=== PATIENT | male | born 1955 | race Caucasian/White ===

== ENCOUNTER 2017-05-13 12:26 | Observation (INO) | payer BC, MEDICARE ==
[2017-05-13 12:33] VITALS: RESP 18
--- NOTE | 2017-05-13 13:07 | ED ---
General Adult HPI - General Chief complaint: Chest Pain Stated complaint: Chest Pain Time Seen by Provider: 05/13/17 12:38 Source: patient, RN notes reviewed Mode of arrival: wheelchair Limitations: no limitations - History of Present Illness Initial comments: 60-year-old male presents for evaluation of chest pain. Patient was sent from the urgent care with this complaint. He's been having intermittent chest pain for the past 3 weeks. Pain is worse with exertion. He has noted some shortness of breath and diaphoresis associated with his worst episode which was 3 days ago. Patient has no known history of coronary artery disease. No history of diabetes or hypertension. He is light smoker. Patient has also had heartburn symptoms and bilateral lower chest pain for the past several weeks. He does complain of some nontraumatic right arm pain as well. No significant family history of coronary artery disease. - Related Data Home Medications Medication Instructions Recorded Confirmed traMADol HCL [Ultram] 25 mg PO DAILY PRN 05/13/17 05/13/17 Allergies Allergy/AdvReac Type Severity Reaction Status Date / Time No Known Allergies Allergy Verified 05/13/17 12:52 Review of Systems ROS Statement: Those systems with pertinent positive or pertinent negative responses have been documented in the HPI. ROS Other: All systems not noted in ROS Statement are negative. Past Medical History Past Medical History: No Reported History Additional Past Medical History / Comment(s): shoulder pain History of Any Multi-Drug Resistant Organisms: None Reported Past Surgical History: Cholecystectomy Past Psychological History: No Psychological Hx Reported Smoking Status: Current some day smoker Past Alcohol Use History: Occasional Past Drug Use History: None Reported General Exam Limitations: no limitations General appearance: alert, in no apparent distress Head exam: Present: atraumatic, normocephalic Eye exam: Present: normal appearance, PERRL Neck exam: Present: normal inspection. Absent: tenderness, meningismus Respiratory exam: Present: normal lung sounds bilaterally. Absent: respiratory distress, wheezes Cardiovascular Exam: Present: regular rate, normal rhythm GI/Abdominal exam: Present: soft. Absent: distended, tenderness Extremities exam: Present: normal inspection, normal capillary refill. Absent: pedal edema Neurological exam: Present: alert, oriented X3, CN II-XII intact. Absent: motor sensory deficit Psychiatric exam: Present: normal affect, normal mood Skin exam: Present: warm, dry, intact. 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 No signs of ST segment elevation. Patient pain Free at the time of this EKG. Medical Decision Making - Medical Decision Making 62-year-old male presenting with several week history of typical chest pain. No known history of coronary artery disease. EKG shows right bundle branch block, no signs of acute ischemia. Patient's history is concerning for unstable angina. He is started on heparin drip. He received aspirin prior to arrival. Laboratory studies reveal normal white blood cell count 4.0, stable hemoglobin, normal electrolytes. Troponin is negative Chest x-ray negative for acute intrathoracic process. - Lab Data Result diagrams: 05/13/17 13:00 05/13/17 13:00 Lab Results 05/13/17 05/13/17 05/13/17 Range/Units 13:00 13:00 13:00 WBC 4.0 (3.8-10.6) k/uL RBC 4.64 (4.30-5.90) m/uL Hgb 14.2 (13.0-17.5) gm/dL Hct 43.0 (39.0-53.0) % MCV 92.6 (80.0-100.0) fL MCH 30.6 (25.0-35.0) pg MCHC 33.0 (31.0-37.0) g/dL RDW 12.8 (11.5-15.5) % Plt Count 243 (150-450) k/uL Neutrophils % 41 % Lymphocytes % 42 % Monocytes % 7 % Eosinophils % 5 % Basophils % 1 % Neutrophils # 1.7 (1.3-7.7) k/uL Lymphocytes # 1.7 (1.0-4.8) k/uL Monocytes # 0.3 (0-1.0) k/uL Eosinophils # 0.2 (0-0.7) k/uL Basophils # 0.0 (0-0.2) k/uL PT (9.0-12.0) sec INR (<1.2) APTT (22.0-30.0) sec Sodium 142 (137-145) mmol/L Potassium 4.2 (3.5-5.1) mmol/L Chloride 105 (98-107) mmol/L Carbon Dioxide 26 (22-30) mmol/L Anion Gap 11 mmol/L BUN 11 (9-20) mg/dL Creatinine 0.70 (0.66-1.25) mg/dL Est GFR (MDRD) Af Amer >60 (>60 ml/min/1.73 sqM) Est GFR (MDRD) Non-Af >60 (>60 ml/min/1.73 sqM) Glucose 97 (74-99) mg/dL Calcium 9.5 (8.4-10.2) mg/dL Magnesium 1.9 (1.6-2.3) mg/dL Total Bilirubin 0.5 (0.2-1.3) mg/dL AST 37 (17-59) U/L ALT 54 (21-72) U/L Alkaline Phosphatase 83 (38-126) U/L Total Creatine Kinase 110 (55-170) U/L CK-MB (CK-2) 0.9 (0.0-2.4) ng/mL CK-MB (CK-2) Rel Index 0.8 Troponin I <0.012 (0.000-0.034) ng/mL NT-Pro-B Natriuret Pep pg/mL Total Protein 7.2 (6.3-8.2) g/dL Albumin 4.3 (3.5-5.0) g/dL Lipase 100 (23-300) U/L 05/13/17 05/13/17 Range/Units 13:00 13:00 WBC (3.8-10.6) k/uL RBC (4.30-5.90) m/uL Hgb (13.0-17.5) gm/dL Hct (39.0-53.0) % MCV (80.0-100.0) fL MCH (25.0-35.0) pg MCHC (31.0-37.0) g/dL RDW (11.5-15.5) % Plt Count (150-450) k/uL Neutrophils % % Lymphocytes % % Monocytes % % Eosinophils % % Basophils % % Neutrophils # (1.3-7.7) k/uL Lymphocytes # (1.0-4.8) k/uL Monocytes # (0-1.0) k/uL Eosinophils # (0-0.7) k/uL Basophils # (0-0.2) k/uL PT 10.5 (9.0-12.0) sec INR 1.1 (<1.2) APTT 24.6 (22.0-30.0) sec Sodium (137-145) mmol/L Potassium (3.5-5.1) mmol/L Chloride (98-107) mmol/L Carbon Dioxide (22-30) mmol/L Anion Gap mmol/L BUN (9-20) mg/dL Creatinine (0.66-1.25) mg/dL Est GFR (MDRD) Af Amer (>60 ml/min/1.73 sqM) Est GFR (MDRD) Non-Af (>60 ml/min/1.73 sqM) Glucose (74-99) mg/dL Calcium (8.4-10.2) mg/dL Magnesium (1.6-2.3) mg/dL Total Bilirubin (0.2-1.3) mg/dL AST (17-59) U/L ALT (21-72) U/L Alkaline Phosphatase (38-126) U/L Total Creatine Kinase (55-170) U/L CK-MB (CK-2) (0.0-2.4) ng/mL CK-MB (CK-2) Rel Index Troponin I (0.000-0.034) ng/mL NT-Pro-B Natriuret Pep 16 pg/mL Total Protein (6.3-8.2) g/dL Albumin (3.5-5.0) g/dL Lipase (23-300) U/L Critical Care Time Critical Care Time: Yes Total Critical Care Time: 35 Disposition Clinical Impression: Unstable angina pectoris Disposition: ADMITTED IP TO THIS [facility] Condition: Stable Referrals: Avni Merritt MD [Primary Care Provider] - 1-2 days Decision to Admit Reason: Admit from EC Decision Date: 05/13/17 Decision Time: 14:29
[2017-05-13 13:30] LABS: Basophils % (A) 1 %; Eosinophils # (A) 0.2 k/uL (0-0.7); Eosinophils % (A) 5 %; HGB 14.2 gm/dL (13.0-17.5); Lymphocytes # (A) 1.7 k/uL (1.0-4.8); Lymphocytes % (A) 42 %; MCH 30.6 pg (25.0-35.0); MCV 92.6 fL (80.0-100.0); Mean Platelet Volume 6.5; Monocytes # (A) 0.3 k/uL (0-1.0); Monocytes % (A) 7 %; Neutrophils # (A) 1.7 k/uL (1.3-7.7); Neutrophils % (A) 41 %; Platelet Count 243 k/uL (150-450); RBC 4.64 m/uL (4.30-5.90); RDW 12.8 % (11.5-15.5)
[2017-05-13 13:39] LABS: Partial Thromboplastin Time 24.6 sec (22.0-30.0)
[2017-05-13 13:40] LABS: ALT 54 U/L (21-72); AST 37 U/L (17-59); Albumin 4.3 g/dL (3.5-5.0); Alkaline Phosphatase 83 U/L (38-126); Anion Gap 11 mmol/L; Blood Urea Nitrogen 11 mg/dL (9-20); Calcium 9.5 mg/dL (8.4-10.2); Carbon Dioxide 26 mmol/L (22-30); Chloride 105 mmol/L (98-107); Glucose 97 mg/dL (74-99); Lipase 100 U/L (23-300); Potassium 4.2 mmol/L (3.5-5.1); Sodium 142 mmol/L (137-145); Total Bilirubin 0.5 mg/dL (0.2-1.3); Total Protein 7.2 g/dL (6.3-8.2)
[2017-05-13 13:41] LABS: INR 1.1 (<1.2); Prothrombin Time 10.5 sec (9.0-12.0)
--- NOTE | 2017-05-13 13:42 | XR ---
EXAMINATION TYPE: XR chest 2V DATE OF EXAM: 05/13/2017 COMPARISON: Chest x-ray November 07, 2012. HISTORY: Chest pain and congestion. TECHNIQUE: Frontal and lateral views of the chest are obtained. FINDINGS: There is no focal air space opacity, pleural effusion, or pneumothorax seen. The cardiac silhouette size is within normal limits. Aneurysmal prominence of aortic knob is stable from prior. The osseous structures are intact. Cholecystectomy clips are redemonstrated. IMPRESSION: No acute cardiopulmonary process. No significant change from prior chest x-ray.
[2017-05-13 13:51] LABS: Creatine Kinase 110 U/L (55-170)
[2017-05-13] MEDS ORDERED: HEPARIN SODIUM,PORCINE 5,000 UNIT/ML 1 ML VIAL IV PRN (13:54)
[2017-05-13] MEDS ORDERED: HEPARIN SODIUM,PORCINE 5,000 UNIT/ML 1 ML VIAL IV ONE (13:54)
[2017-05-13] MEDS ORDERED: HEPARIN SOD,PORK IN 0.45% NACL 25,000 UNIT in 0.45% NACL 1 500ML.BAG IV SCH (14:00)
[2017-05-13 14:04] LABS: Creatine Kinase MB 0.9 ng/mL (0.0-2.4); Troponin I <0.012 ng/mL (0.000-0.034)
[2017-05-13] MEDS ORDERED: NITROGLYCERIN SL TABS 0.4 MG TAB SUBLINGUAL PRN (14:26)
[2017-05-13 19:36] LABS: Creatine Kinase 92 U/L (55-170)
[2017-05-13 19:49] LABS: Creatine Kinase MB 0.7 ng/mL (0.0-2.4); Troponin I <0.012 ng/mL (0.000-0.034)
[2017-05-13] MEDS ORDERED: ATORVASTATIN 40 MG TAB PO SCH (21:00)
[2017-05-14 02:22] LABS: Basophils % (A) 1 %; Eosinophils # (A) 0.4 k/uL (0-0.7); Eosinophils % (A) 8 %; HCT 41.8 % (39.0-53.0); Lymphocytes # (A) 2.3 k/uL (1.0-4.8); Lymphocytes % (A) 50 %; MCHC 31.1 g/dL (31.0-37.0); MCV 96.4 fL (80.0-100.0); Mean Platelet Volume 6.5; Monocytes # (A) 0.4 k/uL (0-1.0); Monocytes % (A) 8 %; Neutrophils # (A) 1.4 k/uL (1.3-7.7); Neutrophils % (A) 31 %; Platelet Count 213 k/uL (150-450); RBC 4.34 m/uL (4.30-5.90); RDW 12.7 % (11.5-15.5); WBC 4.6 k/uL (3.8-10.6)
[2017-05-14 02:42] LABS: Creatine Kinase 87 U/L (55-170)
[2017-05-14 02:45] LABS: Cholesterol 182 mg/dL (<200); HDL Cholesterol 48 mg/dL (40-60); LDL Cholesterol,Calculated 110 mg/dL (0-99); Triglycerides 118 mg/dL (<150)
[2017-05-14 02:56] LABS: Creatine Kinase MB 0.6 ng/mL (0.0-2.4); Troponin I <0.012 ng/mL (0.000-0.034)
--- NOTE | 2017-05-14 03:37 | HP ---
HISTORY AND PHYSICAL DATE OF ADMISSION: 05/13/2017 CHIEF COMPLAINTS: Chest pain. HISTORY OF PRESENT ILLNESS: This 62-year-old gentleman with a past medical history of multiple medical problems including history of GERD, history of bilateral shoulder rotator cuff, cholecystectomy, DJD being followed by Dr. Avni Merritt in the outpatient setting, has [facility] with complaints of chest pain. Patient had chest pain felt in the anterior part of the chest on and off for the last few weeks. The pain is worse with exertion. There is some associated shortness of breath with diaphoresis and first episode 3 days ago. There is no history of fever, rigors or chills. No history of headache, loss of consciousness, seizures. PAST MEDICAL HISTORY: History of GERD, history of bilateral shoulder pain, DJD, cholecystectomy. MEDICATIONS: Prior to admission include home medications are: Ultram 25 mg daily p.r.n. ALLERGIES: None. FAMILY HISTORY: History of dementia, TB in the family. SOCIAL HISTORY: No history of smoking. Occasional alcohol intake. REVIEW OF SYSTEMS: ENT: No diminished vision or hearing. CARDIOVASCULAR: As mentioned earlier. Respiratory: As mentioned earlier. GI no nausea or vomiting. no dysuria. Nervous system: No numbness, weakness. Allergy/immunology: No asthma or hayfever. MUSCULOSKELETAL: As mentioned earlier. HEMATOLOGY/ONCOLOGY: No history of anemia. Endocrine: No history of diabetes or hypothyroidism. Constitutional: As mentioned earlier. Dermatology negative. Rheumatology negative. Psychiatric: As mentioned earlier. PHYSICAL EXAMINATION: Alert and oriented x3. The pulse is 62, blood pressure 98/50, respiration 18, temperature 97.2, pulse ox 97% on room air. HEENT: Conjunctivae normal. Neck: No jugular venous distention. Cardiovascular: S1, S2. Respiratory: Breath sounds diminished in the bases. No rhonchi and no crackles. ABDOMEN: Soft. No mass palpable. Legs no edema. No swelling. NERVOUS SYSTEM: Higher functions as mentioned earlier, moves all 4 limbs, no focal motor or sensory deficits. Lymphatics: No lymph nodes palpable in the neck, axillae or groin. Skin no ulcer, rash, bleeding. LABS: At this time shows some labs are CBC within normal limits. Troponins are negative. APTT noted. The chest x-ray is reported as no acute abnormality and EKG shows normal sinus rhythm. Right bundle branch block. ASSESSMENT: 1. Chest pain for evaluation; possible unstable angina. 2. Incomplete right bundle branch block on the EKG. 3. Gastroesophageal reflux disease. 4. Bilateral shoulder pain, degenerative joint disease. 5. History of cholecystectomy. RECOMMENDATIONS AND DISCUSSION: In this 62-year-old gentleman who presented with multiple complex medical issues, we will monitor the patient closely. Continue the current medications, management and symptomatic treatment. I recommend unstable angina protocol. Otherwise cardiac consultation. N.p.o. past midnight. Possible stress test. Guarded prognosis because of multiple complex medical issues. Further recommendations to follow. MMODL / IJN: [id number] /
[2017-05-14] MEDS ORDERED: ASPIRIN 325 MG TAB PO SCH (09:00)
--- NOTE | 2017-05-14 11:53 | CONS ---
CONSULTATION Mr. Aviles is a 62-year-old gentleman who is seen for cardiac evaluation. Patient gives a history that he has not been feeling well for a couple of weeks. He had some symptoms of cough and then he was having some sweating spells and shortness of breath. Then over the last 2 days, he had some intermittent chest pain which sometimes occurs on the right side, sometimes on the left side. These pains lasting only for few seconds to a minute. The pains were not related to exertion. This patient has a past history of atypical angina and had a stress test done about 3 years ago which was normal. The patient is a light smoker. Patient's home medications include tramadol 25 mg daily. PAST MEDICAL HISTORY: Past medical history includes history of shoulder pain and history of cholecystectomy. PHYSICAL EXAMINATION: Physical examination in the emergency room revealed the patient's vital signs were stable. The patient's blood pressure is 102/65 mmHg. Heart rate is 60 per minute. HEENT examination is negative. Neck is supple. There is no increase in jugular venous pressure. Both the carotid pulses are felt. There is no bruit. Chest is symmetrical. HEART: The PMI is not felt. First and second heart sounds are normal. There is no evidence of any murmur. Lungs are clinically clear to auscultation and percussion. Abdomen is soft. Liver and spleen are not enlarged. Bowel sounds are heard. EXTREMITIES: Peripheral pulsations are 2+. There is no evidence of edema or phlebitis. Neurological examination is grossly normal. EKG shows normal sinus rhythm without any acute ischemic changes. Cardiac enzymes are normal. FINAL IMPRESSION: Atypical chest pain and shortness of breath. EKGs and cardiac enzymes are normal. Patient will be evaluated with echocardiogram and stress echocardiographic study. MMODL / IJN: [id number] /
[2017-05-14 11:58] VITALS: BP 124/84; PULSE 63; TEMP 97.6
--- NOTE | 2017-05-14 12:32 | ECHOF ---
Referral Reason: MEASUREMENTS -------- HEIGHT: 170.2 cm WEIGHT: 81.6 kg BP: 98/54 IVSd: 1.3 cm (0.6 - 1.1) LVIDd: 3.2 cm (3.9 - 5.3) LVPWd: 1.4 cm (0.6 - 1.1) IVSs: 1.7 cm LVIDs: 1.7 cm LVPWs: 1.7 cm LAESV Index (A-L): 16.94 ml/m Ao Diam: 3.2 cm (2.0 - 3.7) AV Cusp: 1.6 cm (1.5 - 2.6) LA Diam: 2.6 cm (2.7 - 3.8) MV EXCURSION: 15.965 mm (> 18.000) MV EF SLOPE: 116 mm/s (70 - 150) EPSS: 0.4 cm MV E Pollo: 0.63 m/s MV DecT: 315 ms MV A Pollo: 0.63 m/s MV E/A Ratio: 1.01 RAP: 5.00 mmHg RVSP: 22.41 mmHg FINDINGS -------- Sinus rhythm. This was a technically good study. The left ventricular size is normal. There is mild concentric left ventricular hypertrophy. Overa ll left ventricular systolic function is normal with, an EF between 55 - 60 %. The right ventricle is normal in size and function. The left atrium is normal in size. The right atrium is normal in size. The aortic valve is trileaflet, and appears structurally normal. No aortic stenosis or regurgitation. The mitral valve leaflets are mildly thickened. There is trace mitral regurgitation. Trace tricuspid regurgitation present. The right ventricular systolic pressure, as measured by Dopp ler, is 22.41mmHg. Pulmonic valve appears structurally normal. The aortic root size is normal. The pericardium is normal. CONCLUSIONS -------- 1. Sinus rhythm. 2. This was a technically good study. 3. The left ventricular size is normal. 4. There is mild concentric left ventricular hypertrophy. 5. Overall left ventricular systolic function is normal with, an EF between 55 - 60 %. 6. The right ventricle is normal in size and function. 7. The left atrium is normal in size. 8. The right atrium is normal in size. 9. The aortic valve is trileaflet, and appears structurally normal. No aortic stenosis or regurgitati on. 10. The mitral valve leaflets are mildly thickened. 11. There is trace mitral regurgitation. 12. Trace tricuspid regurgitation present. 13. The right ventricular systolic pressure, as measured by Doppler, is 22.41mmHg. 14. Pulmonic valve appears structurally normal. 15. The aortic root size is normal. 16. The pericardium is normal. PRODUCTION TESTER: Shanda Mejia RDCS
--- NOTE | 2017-05-14 13:56 | ECHOS ---
STRESS ECHOCARDIOGRAM BASELINE HEART RATE: 66 BASELINE BLOOD PRESSURE: 98/64 MAXIMUM HEART RATE: 139 MAXIMUM BLOOD PRESSURE: 145/66 85% MPHR: 134 100% MPHR: 158 METS: 11.9 MAXIMUM STAGE REACHED: III TOTAL EXERCISE TIME: 11:35 CLINICAL INFORMATION: Patient was exercised for a total period of 11 minutes. The peak heart rate of 139, was achieved. Maximum blood pressure of 137/75 mmHg was noted. The resting EKG shows a normal sinus rhythm with a QRS morphology suggestive of right bundle branch block pattern was noted. No ST-segment depression suggestive of ischemia is noted. The baseline echocardiographic images reveals normal left ventricular chamber size with normal left ventricular systolic function. In the immediate postexercise period normal increase in the wall thickness and contractility is noted. FINAL IMPRESSION: This stress echocardiographic study is negative for stress-induced ischemia. EKG portion of the stress test is not suggestive of ischemia. Patient's exercise tolerance is normal. MMODL / IJN: [id number] /
--- NOTE | 2017-05-14 21:59 | DS ---
DISCHARGE SUMMARY DATE OF SERVICE: 05/14/2017 FINAL DIAGNOSES: 1. Chest pain, possibly musculoskeletal. Negative stress test. 2. Incomplete right bundle branch block on EKG. 3. Gastroesophageal reflux disease. 4. Bilateral shoulder pain, degenerative joint disease. 5. History of cholecystectomy. DISCHARGE DISPOSITION: Patient will be discharged in stable condition with guarded prognosis. HISTORY OF PRESENT ILLNESS: This 62-year-old gentleman with a past medical history of multiple medical problems was having chest pain. Myocardial infarction was ruled out. Stress echo was normal. Cardiology recommended the patient be discharged. The patient will follow up with Dr. Merritt in the outpatient setting. There is no history of fever, rigor or chills. On exam, vital are stable. CARDIOVASCULAR SYSTEM: S1, S2 normal. ABDOMEN: Soft. NERVOUS SYSTEM: No focal deficit. DISCHARGE ADVICE AND MEDICATIONS: 1. Diet is cardiac. 2. Activity limited until followup. 3. Follow up with Dr. Merritt in 2 to 3 days. 4. Follow up with Cardiology as advised. 5. Omeprazole 20 mg p.o. b.i.d. 6. Ultram 25 mg p.o. daily. Once again, the patient will be discharged in stable condition with guarded prognosis. MMODL / IJN: [id number] /
== END 2017-05-14 15:15 | disposition home or self-care (01) ==
LOC: EC 12:26 → 3OBS 14:26
PROVIDERS: ADMIT Hospitalist; ATTEND Hospitalist
DX: R07.89 Other chest pain (principal); R06.02 Shortness of breath; R61 Generalized hyperhidrosis; R12 Heartburn; R05 Cough; M79.601 Pain in right arm; M25.511 Pain in right shoulder; M25.512 Pain in left shoulder; I45.10 Unspecified right bundle-branch block; K21.9 Gastro-esophageal reflux disease without esophagitis; M19.90 Unspecified osteoarthritis, unspecified site; Z90.49 Acquired absence of other specified parts of digestive tract; F17.200 Nicotine dependence, unspecified, uncomplicated; Z81.8 Family history of other mental and behavioral disorders; Z84.89 Family history of other specified conditions
CPT/HCPCS: 99291; 96365 ×2; 96376 ×2; 96366 ×2; 36415; 93005; 93017; 93306; 93350; 83880; 80061; 80053; 82550 ×2; 82553 ×2; 83690; 83735; 84484 ×2; 85025 ×2; 85610; 85730 ×2; 71046; G0378 ×2; J1644 ×2

== ENCOUNTER → 2019-04-11 | Day surgery (SDC) | payer MEDICARE ==
[2019-04-07 10:10] VITALS: BMI 26.7
[~2019-04-11] MED LIST: LACTATED RINGERS 1,000 ML IV SCH; LIDOCAINE 1% (10MG/ML) FOR IV START INTRADERMA PRN
== END ==
LOC: ORWHC2ENDO 08:06
PROVIDERS: ATTEND Internal Medicine
DX: Z53.9 Procedure and treatment not carried out, unspecified reason (principal)

== ENCOUNTER → 2020-05-14 | Day surgery (SDC) | payer MEDICARE ==
[2020-05-11 09:23] VITALS: BMI 26.9
[~2020-05-14] MED LIST changes: +LIDOCAINE 1% INJ 10MG/ML (20 ML MDV) ONE; +PHENYLEPHRINE-0.9% NACL SYG 1,000 MCG/10 ML SYRINGE ONE; +PROPOFOL 10 MG/ML 20 ML VIAL IV ONE; +fentaNYL (PF) 50 MCG/ML 2 ML AMP ONE
[2020-05-14 09:28] VITALS: RESP 16; TEMP 97.8
--- NOTE | 2020-05-14 10:33 | P.PCN ---
Date of Procedure: 05/14/20 Description of Procedure: BRIEF HISTORY: Patient is a 65-year-old male presenting for outpatient colonoscopy for screening for malignancy neoplasm colon. Patient reports recent episode of diverticulitis. Last colonoscopy over 10 years ago by patient report. No change in bowel habits. PROCEDURE PERFORMED: Colonoscopy with polypectomy. PREOPERATIVE DIAGNOSIS: Screening for malignant neoplasm of the colon, last colonoscopy over 10 years ago per patient report. ESTIMATED BLOOD LOSS: Minimal. IV sedation per Anesthesia. PROCEDURE: After informed consent was obtained, the patient, was brought into the endoscopy unit. IV sedation was administered by Anesthesia under continuous monitoring. Digital rectal examination was normal. Initially the Olympus CF-190 flexible video colonoscope was then inserted in the rectum, gradually advanced into the cecum without any difficulty. Careful examination was performed as the scope was gradually being withdrawn. Ileocecal valve and the appendiceal orifice were visualized and appeared normal. Prep was excellent. Mucosa of the cecum, ascen ding colon, transverse colon, descending colon, sigmoid colon, and rectum appeared normal. 2 diminutive polyps measuring 1-2 mm in size removed from ascending colon and transverse colon with cold forcep polypectomy. Cold snare polypectomy of sessile 3 mm cecal polyp, sessile 4 mm splenic flexure polyp. Pedunculated at 12 mm sigmoid polyp removed with hot snare polypectomy. Multiple small mouth diverticula noted in the sigmoid colon. Retroflexion was performed in the rectum and no lesions were seen. The patient tolerated the procedure well. IMPRESSION: Pedunculated sigmoid colon polyp removed with hot snare polypectomy. Cold snare polypectomy of sessile polyps from the cecum and splenic flexure. 2 diminutive polyps removed from the ascending colon and transverse colon with cold forcep polypectomy. Mild sigmoid diverticulosis. RECOMMENDATIONS: Findings of this examination were discussed with the patient and his family. Okay to resume diet. Okay to resume medications. Await pathology from polypectomies. Repeat colonoscopy in 3 years for high risk colon polyps pending pathology from polypectomies..
[2020-05-14 10:49] VITALS: BP 103/69; PULSE 79
== END ==
LOC: ORWHC2ENDO 09:07
PROVIDERS: ATTEND Internal Medicine
DX: D12.0 Benign neoplasm of cecum (principal); D12.2 Benign neoplasm of ascending colon; D12.3 Benign neoplasm of transverse colon; D12.5 Benign neoplasm of sigmoid colon; K57.30 Diverticulosis of large intestine without perforation or abscess without bleeding; F17.200 Nicotine dependence, unspecified, uncomplicated; Z90.49 Acquired absence of other specified parts of digestive tract; Z98.890 Other specified postprocedural states; Z79.891 Long term (current) use of opiate analgesic; Z88.0 Allergy status to penicillin
CPT/HCPCS: 45380; 45385; 88305

== ENCOUNTER 2023-03-23 13:06 | Emergency (ER) | payer MEDICARE ==
--- NOTE | 2023-03-23 13:32 | ED ---
General Adult HPI - General Chief complaint: Headache Stated complaint: hypertension,left facial tingling Time Seen by Provider: 03/23/23 13:10 Source: patient, RN notes reviewed, old records reviewed Mode of arrival: wheelchair Limitations: no limitations - History of Present Illness Initial comments: This is a 68-year-old male who presents emergency Department complaining of having some congestion and some runny nose over the last few days. Patient hasn't taken [id number] medication he does believe that is congested. Patient states since then he's been having a little bit of a headache and some tingling sensation on the left side of his face like it's falling asleep. Patient states he can feel normally on his anxiety can move everything normally. Patient denies any visual changes. Patient denies any speech problems. Patient denies any chest pain difficult breathing shortness of breath. Patient denies any palpitations. Patient denies any numbness patient states he was having some feeling of being off balance but not to the point where he was stumbling or walking into anything. She states patient states he had his blood pressure taken at home and was 170/108 and he states he doesn't have high blood pressure so that concerned him so he came to the emergency department patient's symptoms began 2 days ago. patient states he been under quite a bit of stress lately. - Related Data Home Medications Medication Instructions Recorded Confirmed traMADol HCL [Ultram] 50 mg PO HS 05/13/17 05/14/20 Previous Rx's Medication Instructions Recorded amLODIPine [Norvasc] 5 mg PO DAILY #10 tab 03/23/23 Allergies Allergy/AdvReac Type Severity Reaction Status Date / Time No Known Allergies Allergy Verified 03/23/23 13:13 Review of Systems ROS Statement: Those systems with pertinent positive or pertinent negative responses have been documented in the HPI. ROS Other: All systems not noted in ROS Statement are negative. Past Medical History Past Medical History: GERD/Reflux Additional Past Medical History / Comment(s): hx of diverticulosis, Bilateral shoulder pain-torn rotator cuffs, cervical pain, History of Any Multi-Drug Resistant Organisms: None Reported Past Surgical History: Cholecystectomy Additional Past Surgical History / Comment(s): EGD, colonoscopy, benign cysts removed from forehead, cyst on buttock Past Anesthesia/Blood Transfusion Reactions: No Reported Reaction Past Psychological History: No Psychological Hx Reported Smoking Status: Current some day smoker - Past Family History Mother Family Medical History: Dementia Father Family Medical History: Coronary Artery Disease (CAD) Additional Family Medical History / Comment(s): Father had CABG at the age of 82 yrs. Sister(s) Family Medical History: Cancer Additional Family Medical History / Comment(s): lungs and lymph nodes Daughter(s) Family Medical History: Cancer Additional Family Medical History / Comment(s): thyroid cancer Brother(s) Family Medical History: Coronary Artery Disease (CAD) General Exam - General Exam Comments Initial Comments: GENERAL: Patient is well-developed and well-nourished. Patient is nontoxic and well-hy drated and is in no acute distress. ENT: Neck is soft and supple. No significant lymphadenopathy is noted. Oropharynx is clear. Moist mucous membranes. Neck has full range of motion without elici ting any pain. EYES: The sclera were anicteric and conjunctiva were pink and moist. Extraocular movements were intact and pupils were equal round and reactive to light. Eyelids were unremarkable. PULMONARY: Unlabored respirations. Good breath sounds bilaterally. No audible rales rhonchi or wheezing was noted. CARDIOVASCULAR: There is a regular rate and rhythm without any murmurs gallops or rubs. ABDOMEN: Soft and nontender with normal bowel sounds. SKIN: Skin is clear with no lesions or rashes and otherwise unremarkable. NEUROLOGIC: Patient is alert and oriented x3. Cranial nerves II through XII are grossly intact. Motor and sensory are also intact. Normal speech, volume and content. Symmetrical smile. Cerebellar testing finger to nose bilaterally was normal. Patient's NIH is 0 MUSCULOSKELETAL: Normal extremities with adequate strength and full range of motion. LYMPHATICS: No significant lymphadenopathy is noted PSYCHIATRIC: Normal psychiatric evaluation. Limitations: no limitations Course Vital Signs 03/23/23 03/23/23 13:10 14:06 Temperature 98.0 F Pulse Rate 86 66 Respiratory 16 20 Rate Blood Pressure 175/101 152/99 O2 Sat by Pulse 99 98 Oximetry Medical Decision Making - Medical Decision Making EKG as interpreted by myself. EKG shows a sinus rhythm at 72 bpm NV interval 284 QRSs are 167 QT interval 07/10/1969 QTC is 452. Patient has a right bundle branch block. Was pt. sent in by a medical professional or institution (Dr., PA, TONGUE TRIMMER, urgent care, hospital, or alf...) When possible be specific @ -No Did you speak to anyone other than the patient for history (EMS, parent, family, police, friend...)? What history was obtained from this source @ -[No] Did you review nursing and triage notes (agree or disagree)? Why? @ -[I reviewed and agree with nursing and triage notes] Were old charts reviewed (outside hosp., previous admission, EMS record, old EK G, old radiological studies, urgent care reports/EKG's, alf records)? Report findings @ -I reviewed prior charts and prior lab work and EKGs and the patient Differential Diagnosis (chest pain, altered mental status, abdominal pain women, abdominal pain men, vaginal bleeding, weakness, fever, dyspnea, syncope, headache, dizziness, GI bleed, back pain, seizure, CVA, palpatations, mental health, musculoskeletal)? @ -Differential Headache: Migraine, tension, cluster, carbon monoxide, central venous thrombosis, pension karma temporal arteritis, acute closure glaucoma, intercranial hemorrhage, mastoiditis, sinusitis, head injury, this is not meant to be an all-inclusive list. EKG interpreted by me (3pts min.). @ -[As above] X-rays interpreted by me (1pt min.). @ -Chest x-ray shows no acute abnormality CT interpreted by me (1pt min.). @ -CT of the brain shows no acute abnormality U/S interpreted by me (1pt. min.). @ -[None done] What testing was considered but not performed or refused? (CT, X-rays, U/S, labs)? Why? @ -[None] What meds were considered but not given or refused? Why? @ -[None] Did you discuss the management of the patient with other professionals (professionals i.e. JAYLIN Stiles, TONGUE TRIMMER, lab, RT, psych nurse, rn social services, hand wood sander, teacher, division officer weapons department, protective services case worker)? Give summary @ -Back into reevaluate the patient he said the tingling inside of his face is no longer there. Patient denies any headache at this time. Patient's blood pressure did drop by 20 points systolically and 10 points diastolically. Was smoking cessation discussed for >3mins.? @ -[No] Was critical care preformed (if so, how long)? @ -[No] Were there social determinants of health that impacted care today? How? (Homelessness, low income, unemployed, alcoholism, drug addiction, transportation, low edu. Level, literacy, decrease access to med. care, senior living, rehab)? @ -[No] Was there de-escalation of care discussed even if they declined (Discuss DNR or withdrawal of care, Hospice)? DNR status @ -[No] What co-morbidities impacted this encounter? (DM, HTN, Smoking, COPD, CAD, Cancer, CVA, ARF, Chemo, Hep., AIDS, mental health diagnosis, sleep apnea, morbid obesity)? @ -[None] Was patient admitted / discharged? Hospital course, mention meds given and rou te, prescriptions, significant lab abnormalities, going to OR and other pertinent info. @ -Patient is computed tomography scan showed no acute abnormality. Patient had lab work done as well and showed no acute abnormality. Patient was asymptomatic when I will back into the room to reevaluate him. Patient states she's been under quite a bit of stress lately and wonders if that has somebody with it. Patient also states she will stop taking the decongestant. Undiagnosed new problem with uncertain prognosis? @ -[No] Drug Therapy requiring intensive monitoring for toxicity (Heparin, Nitro, Insulin, Cardizem)? @ -[No] Were any procedures done? @ -[No] Diagnosis/symptom? @ -Hypertensive urgency Acute, or Chronic, or Acute on Chronic? @ -Acute Uncomplicated (without systemic symptoms) or Complicated (systemic symptoms)? @ -complicated Side effects of treatment? @ -[No] Exacerbation, Progression, or Severe Exacerbation? @ -[No] Poses a threat to life or bodily function? How? (Chest pain, [place], [place], pneumonia, PE, COPD, DKA, ARF, appy, cholecystitis, CVA, Diverticulitis, Homicidal, Suicidal, threat to staff... and all critical care pts) @ -[No] - Lab Data Result diagrams: 03/23/23 13:31 03/23/23 13:31 Lab Results 03/23/23 03/23/23 03/23/23 Range/Units 13:31 13:31 13:31 WBC 4.2 (3.8-10.6) k/uL RBC 4.48 (4.30-5.90) m/uL Hgb 13.8 (13.0-17.5) gm/dL Hct 41.8 (39.0-53.0) % MCV 93.4 (80.0-100.0) fL MCH 30.9 (25.0-35.0) pg MCHC 33.1 (31.0-37.0) g/dL RDW 13.2 (11.5-15.5) % Plt Count 291 (150-450) k/uL MPV 7.1 Neutrophils % 58 % Lymphocytes % 27 % Monocytes % 8 % Eosinophils % 4 % Basophils % 1 % Neutrophils # 2.4 (1.3-7.7) k/uL Lymphocytes # 1.1 (1.0-4.8) k/uL Monocytes # 0.3 (0-1.0) k/uL Eosinophils # 0.2 (0-0.7) k/uL Basophils # 0.0 (0-0.2) k/uL PT 10.9 (10.0-12.5) sec INR 1.0 (<1.2) APTT 27.0 (22.0-30.0) sec Sodium 140 (137-145) mmol/L Potassium 4.3 (3.5-5.1) mmol/L Chloride 103 (98-107) mmol/L Carbon Dioxide 25 (22-30) mmol/L Anion Gap 12 mmol/L BUN 11 (9-20) mg/dL Creatinine 0.68 (0.66-1.25) mg/dL Est GFR (CKD-EPI)AfAm >90 (>60 ml/min/1.73 sqM) Est GFR (CKD-EPI)NonAf >90 (>60 ml/min/1.73 sqM) Glucose 107 H (74-99) mg/dL Calcium 9.6 (8.4-10.2) mg/dL Magnesium 1.8 (1.6-2.3) mg/dL Total Bilirubin 0.5 (0.2-1.3) mg/dL AST 32 (17-59) U/L ALT 35 (4-49) U/L Alkaline Phosphatase 107 (38-126) U/L Troponin I (0.000-0.034) ng/mL Total Protein 7.9 (6.3-8.2) g/dL Albumin 4.6 (3.5-5.0) g/dL 03/23/23 Range/Units 13:31 WBC (3.8-10.6) k/uL RBC (4.30-5.90) m/uL Hgb (13.0-17.5) gm/dL Hct (39.0-53.0) % MCV (80.0-100.0) fL MCH (25.0-35.0) pg MCHC (31.0-37.0) g/dL RDW (11.5-15.5) % Plt Count (150-450) k/uL MPV Neutrophils % % Lymphocytes % % Monocytes % % Eosinophils % % Basophils % % Neutrophils # (1.3-7.7) k/uL Lymphocytes # (1.0-4.8) k/uL Monocytes # (0-1.0) k/uL Eosinophils # (0-0.7) k/uL Basophils # (0-0.2) k/uL PT (10.0-12.5) sec INR (<1.2) APTT (22.0-30.0) sec Sodium (137-145) mmol/L Potassium (3.5-5.1) mmol/L Chloride (98-107) mmol/L Carbon Dioxide (22-30) mmol/L Anion Gap mmol/L BUN (9-20) mg/dL Creatinine (0.66-1.25) mg/dL Est GFR (CKD-EPI)AfAm (>60 ml/min/1.73 sqM) Est GFR (CKD-EPI)NonAf (>60 ml/min/1.73 sqM) Glucose (74-99) mg/dL Calcium (8.4-10.2) mg/dL Magnesium (1.6-2.3) mg/dL Total Bilirubin (0.2-1.3) mg/dL AST (17-59) U/L ALT (4-49) U/L Alkaline Phosphatase (38-126) U/L Troponin I <0.012 (0.000-0.034) ng/mL Total Protein (6.3-8.2) g/dL Albumin (3.5-5.0) g/dL Disposition Clinical Impression: Hypertensive urgency Disposition: HOME SELF-CARE Condition: Good Instructions (If sedation given, give patient instructions): Hypertension (ED) Additional Instructions: Patient should take his blood pressure for breakfast lunch and dinner and before bed and chart this for his physician. Patient should take Norvasc when necessary if his blood pressure is over 150 systolic or 100 diastolic. Prescriptions: amLODIPine [Norvasc] 5 mg PO DAILY #10 tab Is patient prescribed a controlled substance at d/c from ED?: No Referrals: Avni Merritt MD [Primary Care Provider] - 1-2 days Time of Disposition: 14:39
[2023-03-23 13:41] LABS: Basophils % (A) 1 %; Eosinophils # (A) 0.2 k/uL (0-0.7); Eosinophils % (A) 4 %; HCT 41.8 % (39.0-53.0); HGB 13.8 gm/dL (13.0-17.5); Lymphocytes # (A) 1.1 k/uL (1.0-4.8); Lymphocytes % (A) 27 %; MCH 30.9 pg (25.0-35.0); MCHC 33.1 g/dL (31.0-37.0); MCV 93.4 fL (80.0-100.0); Mean Platelet Volume 7.1; Monocytes # (A) 0.3 k/uL (0-1.0); Monocytes % (A) 8 %; Neutrophils # (A) 2.4 k/uL (1.3-7.7); Neutrophils % (A) 58 %; Platelet Count 291 k/uL (150-450); RBC 4.48 m/uL (4.30-5.90); RDW 13.2 % (11.5-15.5); WBC 4.2 k/uL (3.8-10.6)
[2023-03-23 13:48] VITALS: TEMP 98
[2023-03-23 13:52] LABS: ALT 35 U/L (4-49); AST 32 U/L (17-59); African American GFR (CKD) >90 (>60 ml/min/1.73 sqM); Albumin 4.6 g/dL (3.5-5.0); Alkaline Phosphatase 107 U/L (38-126); Anion Gap 12 mmol/L; Blood Urea Nitrogen 11 mg/dL (9-20); Calcium 9.6 mg/dL (8.4-10.2); Carbon Dioxide 25 mmol/L (22-30); Chloride 103 mmol/L (98-107); Glucose 107 mg/dL (74-99); Magnesium 1.8 mg/dL (1.6-2.3); Non-African American GFR(CKD) >90 (>60 ml/min/1.73 sqM); Potassium 4.3 mmol/L (3.5-5.1); Sodium 140 mmol/L (137-145); Total Bilirubin 0.5 mg/dL (0.2-1.3); Total Protein 7.9 g/dL (6.3-8.2)
[2023-03-23 13:56] LABS: Prothrombin Time 10.9 sec (10.0-12.5)
--- NOTE | 2023-03-23 14:06 | CT ---
EXAMINATION TYPE: CT brain wo con DATE OF EXAM: 03/23/2023 COMPARISON: 11/07/2012 INDICATION: High blood pressure, headache x 3 days DLP: 1095.4 mGycm, Automated exposure control for dose reduction was used. CONTRAST: None CT of the brain is performed utilizing 3 mm thick sections through the posterior fossa and 3 mm thick sections through the remaining calvarium. Study is performed within 24 hours of arrival to the hosp ital. No abnormal hyperdensity is present to suggest an acute intracranial hemorrhage. No mass lesion is evident. Some minimal physiologic basal ganglion calcification is present bilateral ly, present previously. No acute infarcts are evident. Ventricles and sulci are appropriate for the patient age. Paranasal sinuses and mastoid air cells within the [id number] are clear. IMPRESSION: 1. No acute intracranial process. Follow-up MRI can be performed as clinically indicated.
--- NOTE | 2023-03-23 14:07 | XR ---
EXAMINATION TYPE: XR chest 2V DATE OF EXAM: 03/23/2023 COMPARISON: 05/13/2017 INDICATION: Chest pain TECHNIQUE: Frontal and lateral views of the chest are obtained. FINDINGS: The heart size is normal. The pulmonary vasculature is normal. The lungs are clear. IMPRESSION: 1. No acute pulmonary process.
[2023-03-23 14:13] VITALS: RESP 20
[2023-03-23 15:03] VITALS: BP 139/96; PULSE 70
== END 2023-03-23 14:51 | disposition home or self-care (01) ==
LOC: EC 13:06
DX: I16.0 Hypertensive urgency (principal); I10 Essential (primary) hypertension; I45.10 Unspecified right bundle-branch block; F17.200 Nicotine dependence, unspecified, uncomplicated
CPT/HCPCS: 36415; 70450; 71046; 80053; 83735; 84484; 85025; 85610; 85730; 93005; 99285

== ENCOUNTER 2024-06-07 08:01 | Day surgery (SDC) | payer MEDICARE ==
[2024-06-03 10:13] VITALS: BMI 24.1
[2024-06-07] MEDS: LACTATED RINGERS 1,000 ML IV SCH (08:35)
[2024-06-07] MEDS: IV FLUID CONTINUATION 1,000 ML IV ONE (08:35)
[2024-06-07 08:39] VITALS: RESP 16; TEMP 97.1
[2024-06-07] MEDS ORDERED: PROPOFOL 10 MG/ML 20 ML VIAL IV ONE (08:40)
--- NOTE | 2024-06-07 08:58 | P.PCN ---
Date of Procedure: 06/07/24 Procedure(s) Performed: BRIEF HISTORY: Patient is a 69-year-old pleasant man scheduled for an elective colonoscopy as a part of screening for by history of colon polyps. Last colonoscopy was43 years ago and was noted to have tubular adenoma. PROCEDURE PERFORMED: Colonoscopy with biopsy and snare polypectomy PREOPERATIVE DIAGNOSIS: Screening for history of colon polyps. IV sedation per Anesthesia. PROCEDURE: After informed consent was obtained, the patient, was brought into the endoscopy unit. IV sedation was administered by Anesthesia under continuous monitoring. Digital rectal examination was normal. Initially the Olympus CF-160 flexible video colonoscope was then inserted in the rectum, gradually advanced into the cecum without any difficulty. Careful examination was performed as the scope was gradually being withdrawn. Ileocecal valve and the appendiceal orifice were visualized and appeared normal. Prep was excellent. Mucosa of the cecum had a 3 mm polyp that was removed by cold biopsy and a 1 cm polyp was removed by cold snare polypectomy. Rest of the, ascending colon, transverse colon, appeared normal. The descending colon there was an 8 mm polyp removed by cold snare polypectomy. Scattered left-sided diverticulosis seen. Descending colon, sigmoid colon, and rectum appeared normal. Retroflexion was performed in the rectum and small internal were seen. The patient tolerated the procedure well. IMPRESSION: 3 mm cecal polyp status post cold biopsy 1 cm cecal polyp status post cold snare polypectomy 8 mm descending colon polyp status post cold snare polypectomy Scattered sigmoid diverticulosis and grade 2 internal hemorrhoids RECOMMENDATIONS: Findings of this examination were discussed with the patient as well as his family.. He was advised to follow-up with the biopsy results. If the biopsy reveals adenoma he can have repeat colonoscopy in 3 years.
[2024-06-07 09:52] VITALS: BP 126/71; PULSE 67
== END 2024-06-07 09:41 ==
LOC: ORWHC2ENDO 08:01
PROVIDERS: ATTEND Internal Medicine Gastroenterology
DX: Z12.11 Encounter for screening for malignant neoplasm of colon (principal); D12.0 Benign neoplasm of cecum; D12.4 Benign neoplasm of descending colon; K57.30 Diverticulosis of large intestine without perforation or abscess without bleeding; K64.1 Second degree hemorrhoids; K21.9 Gastro-esophageal reflux disease without esophagitis; F17.210 Nicotine dependence, cigarettes, uncomplicated; Z86.0101 Personal history of adenomatous and serrated colon polyps
CPT/HCPCS: 88305; 45380; 45385; J2704

== ENCOUNTER 2024-08-08 12:37 | Emergency (ER) | payer MEDICARE ==
[2024-08-08 12:49] VITALS: RESP 18; TEMP 97.6
--- NOTE | 2024-08-08 13:39 | ED ---
General Adult HPI - General Chief complaint: Chest Pain Stated complaint: Chest pains Time Seen by Provider: 08/08/24 13:15 Source: patient, RN notes reviewed, old records reviewed Mode of arrival: ambulatory Limitations: no limitations - History of Present Illness Initial comments: Patient is a 69-year-old male who presents emergency department complaining of multiple complaints. Was sent by PCP for abnormal EKG. Patient has been experiencing intermittent symptoms. Primary symptom is abdominal discomfort that radiates up into his chest and sometimes towards his back. This has been ongoing for the last month, primarily when he eats food. States he no longer has a gallbladder. States it is with certain foods but is not exactly certain which ones cause it. States it is intermittent. Currently does not have the complaint at this time. Denies this pain or discomfort with exertion. Denies chest pain with exertion. Currently has no chest pain. Denies it is a burning sensation but rather than an extreme discomfort. States he has also been having intermittent what sounds like musculoskeletal left shoulder pain. This has been ongoing for the last week. Unknown if this is associated with his other symptoms or not. States he noticed it when he was doing some stretches with a roller on the ground and thinks it may be musculoskeletal in nature. Also does not have this pain currently at this time. Denies any shortness of breath. Denies any nausea. Is due to have an EGD in August of this year. Unknown what is causing his symptoms. Had an EKG done when he was following with his PCP today and they said it was abnormal and sent him here for further evaluation. Denies any cardiac history. Has no other acute complaints at this time.Workup started in triage and I evaluated the patient when he was placed in a hallway bed.Currently denies any symptoms but states he had them earlier today. They have been occurring on a daily basis for at least the last month. - Related Data Home Medications Medication Instructions Recorded Confirmed Omeprazole 20 mg PO DAILY 08/08/24 08/08/24 Allergies Allergy/AdvReac Type Severity Reaction Status Date / Time No Known Allergies Allergy Verified 08/08/24 17:05 Review of Systems ROS Statement: Those systems with pertinent positive or pertinent negative responses have been documented in the HPI. Review of Systems: CONST: Denies fever EYES: Denies blurry vision ENT: Denies nasal congestion C/V: Denies Chest pain RESP: Denies shortness of breath GI: Denies abdominal pain : Denies dysuria SKIN: Denies rash. MSK: Denies joint pain. NEURO: Denies headache ROS Other: All systems not noted in ROS Statement are negative. Past Medical History Past Medical History: GERD/Reflux Additional Past Medical History / Comment(s): hx of diverticulosis, Bilateral shoulder pain-torn rotator cuffs, cervical pain, History of Any Multi-Drug Resistant Organisms: None Reported Past Surgical History: Cholecystectomy Additional Past Surgical History / Comment(s): EGD, colonoscopy, benign cysts removed from forehead, cyst on buttock Past Anesthesia/Blood Transfusion Reactions: No Reported Reaction Additional Past Anesthesia/Blood Transfusion Reaction / Comment(s): no blood transfusion Past Psychological History: No Psychological Hx Reported Smoking Status: Current some day smoker Past Alcohol Use History: None Reported Past Drug Use History: Marijuana - Past Family History Mother Family Medical History: Dementia Father Family Medical History: Coronary Artery Disease (CAD) Additional Family Medical History / Comment(s): Father had CABG at the age of 82 yrs. Sister(s) Family Medical History: Cancer Additional Family Medical History / Comment(s): lungs and lymph nodes Daughter(s) Family Medical History: Cancer Additional Family Medical History / Comment(s): thyroid cancer Brother(s) Family Medical History: Coronary Artery Disease (CAD) General Exam - General Exam Comments Initial Comments: General: Appears in no acute distress. HEAD: Normal with no signs of head trauma. EYES: EOMI ENT: Hearing grossly intact, normal oropharynx. RESPIRATORY: Clear breath sounds bilaterally. No wheezes, rales, or rhonchi. C/V: Regular rate and rhythm. S1 and S2 auscultated, no edema, peripheral pulses 2+ and intact throughout ABD: Abd is soft, nontender, nondistended. No guarding or rebound tenderness. No peritoneal signs. EXT: Normal range of motion, no obvious deformity. No obvious tenderness on palpation of the left shoulder. Obvious finding of left shoulder separation whi ch patient states is chronic. SKIN: No rashes or lesions observed on exposed skin. NEURO: Alert and oriented x 4. Limitations: no limitations Course Vital Signs 08/08/24 08/08/24 08/08/24 12:44 15:28 17:45 Temperature 97.6 F Pulse Rate 65 64 72 Respiratory 18 18 18 Rate Blood Pressure 158/88 124/88 124/89 O2 Sat by Pulse 99 100 100 Oximetry Medical Decision Making - Medical Decision Making Was pt. sent in by a medical professional or institution (, [facility], [employer] [facility], urgent care, hospital, or group home...) When possible be specific @ -No Did you speak to anyone other than the patient for history (EMS, parent, family, police, friend...)? What history was obtained from this source @ -No Did you review nursing and triage notes (agree or disagree)? Why? @ -I reviewed and agree with nursing and triage notes Were old charts reviewed (outside hosp., previous admission, EMS record, old EKG, old radiological studies, urgent care reports/EKG's, group home records)? Report findings @ -Reviewed EKG from March 2023 and compared with today's which shows no acute dynamic changes. Differential Diagnosis (chest pain, altered mental status, abdominal pain women, abdominal pain men, vaginal bleeding, weakness, fever, dyspnea, syncope, headache, dizziness, GI bleed, back pain, seizure, CVA, palpatations, mental health, musculoskeletal)? @ -ACS, acid reflux, ulcer, this list is not all inclusive. EKG interpreted by me (3pts min.). @ -As above X-rays interpreted by me (1pt min.). @ -Chest x-ray shows no obvious acute cardiopulmonary process. CT interpreted by me (1pt min.). @ -CT angiogram of the chest negative for PE or other obvious acute process. CT of the abdomen pelvis shows a suspected possible blockage of the CBD postcholecystectomy. Dilated hepatic ducts with an abrupt transition of the common bile duct at the pancreatic head. Unknown etiology of this cause. Consider further evaluation with ERCP. Enlarged lymph nodes as well which could be related to possible malignancy versus inflammatory versus infectious etiology. Enlarged prostate gland is present as well. U/S interpreted by me (1pt. min.). @ -None done What testing was considered but not performed or refused? (CT, X-rays, U/S, labs)? Why? @ -None What meds were considered but not given or refused? Why? @ -None Did you discuss the management of the patient with other professionals (professionals i.e. , [facility], [employer], lab, RT, psych nurse, social problems specialist, head of marketing, teacher, geographic area intelligence officer, case worker)? Give summary @ -Discussed with our on-call surgeon, Dr. Cowan who agreed that patient requires transfer for GI evaluation. Contacted [facility] for transfer. Patient was auto accepted and accepting physician is Dr. Calderon and I was informed I do not need to speak with an accepting ER physician.. Was smoking cessation discussed for >3mins.? @ -No Was critical care preformed (if so, how long)? @ -Yes, 34 minutes Were there social determinants of health that impacted care today? How? (Homelessness, low income, unemployed, alcoholism, drug addiction, transportation, low edu. Level, literacy, decrease access to med. care, senior living, rehab)? @ -No Was there de-escalation of care discussed even if they declined (Discuss DNR or withdrawal of care, Hospice)? DNR status @ -No What co-morbidities impacted this encounter? (DM, HTN, Smoking, COPD, CAD, Cancer, CVA, ARF, Chemo, Hep., AIDS, mental health diagnosis, sleep apnea, morbid obesity)? @ -None Was patient admitted / discharged? Hospital course, mention meds given and route, prescriptions, significant lab abnormalities, going to OR and other pertinent info. @ -Patient presents with somewhat atypical chest pain, abdominal pain ongoing for the last month with left shoulder involvement and at over the last week. Currently is asymptomatic. Seems to be associate with food but unknown etiology for the pain. Was sent by PCP for evaluation due to abnormal EKG as well as for his symptoms. Does not follow-up with a rn prior authorization. We will obtain ca rdiopulmonary workup as well as CT imaging of the chest and belly. He was in agreement this plan. He is given IV fluids, IV Zofran and Protonix. Prior to administering aspirin, I would like to obtain the results of the CT imaging to ensure there is no contraindication for antiplatelet medication or anticoagulation. Patient was in agreement this plan. Currently is asymptomatic. EKG shows chronic changes, and is very similar to EKG from March 2023.Patient's labs returned remarkable for elevated LFTs at 308 and 370. Alk phos is also elevated to 8000. This is also all acute for the patient, with most recent labs from March 2023 that were within normal limits. Imaging returned remarkable for an enlarged prostate. Patient also has an abrupt change and possible partial blockage of the CBD near the pancreas. Unknown etiology. No obvious findings to explain the blockage. No obvious mass. This is still on the differential but no obvious mass seen on CT. Patient had a cholecystectomy years ago. Less likely to be a stone. No signs of infection on labs. Bilirubin within normal limits. I discussed the findings with patient and family. Recommended transfer as we do not have gastroenterology available at our facility for evaluation and ERCP. I discussed with the on-call surgeon, Dr. Cowan who was in agreement with this plan. Family and patient were in agreement this plan. Patient was auto accepted to [facility] and I was informed I do not need to speak with an accepting ER physician.. Patient transferred in stable condition. Accepting physician is Dr. Calderon. Undiagnosed new problem with uncertain prognosis? @ -Yes Drug Therapy requiring intensive monitoring for toxicity (Heparin, Nitro, Insulin, Cardizem)? @ -No Were any procedures done? @ -No Diagnosis/symptom? @ -Common bile duct obstruction of unknown etiology Acute, or Chronic, or Acute on Chronic? @ -Acute Uncomplicated (without systemic symptoms) or Complicated (systemic symptoms)? @ -Complicated Side effects of treatment? @ -None Exacerbation, Progression, or Severe Exacerbation] @ -No Poses a threat to life or bodily function? @ -Potentially, yes - Lab Data Result diagrams: 08/08/24 13:32 08/08/24 13:32 Lab Results 08/08/24 08/08/24 08/08/24 Range/Units 13:32 13:32 13:32 WBC 3.40 L (4.50-10.00) 10*3/uL RBC 4.66 (4.40-5.60) 10*6/uL Hgb 14.1 (13.0-17.0) g/dL Hct 42.4 (39.6-50.0) % MCV 91.0 (80.0-97.0) fL MCH 30.3 (27.0-32.0) pg MCHC 33.3 (32.0-37.0) g/dL Plt Count 330 (140-440) 10*3/uL MPV 8.6 L (9.5-12.2) fL Immature Gran % (Auto) 0.3 % Neutrophils % 56.2 % Lymphocytes % 27.1 % Monocytes % 13.2 % Eosinophils % 2.9 % Basophils % 0.3 % Immature Gran # 0.01 (0.00-0.04) 10*3/uL Neutrophils # 1.91 (1.80-7.70) 10*3/uL Lymphocytes # 0.92 (0.90-5.00) 10*3/uL Monocytes # 0.45 (0.20-1.00) 10*3/uL Eosinophils # 0.10 (0.04-0.35) 10*3/uL Basophils # 0.01 (0.00-0.10) 10*3/uL PT 11.4 (10.0-12.5) sec INR 1.0 (<1.2) APTT 26.8 (22.0-30.0) sec Sodium 139 (137-145) mmol/L Potassium 4.7 (3.5-5.1) mmol/L Chloride 101 (98-107) mmol/L Carbon Dioxide 28 (22-30) mmol/L Anion Gap 10 mmol/L BUN 6 L (9-20) mg/dL Creatinine 0.62 L (0.66-1.25) mg/dL Est GFR (CKD-EPI)AfAm >90 (>60 ml/min/1.73 sqM) Est GFR (CKD-EPI)NonAf >90 (>60 ml/min/1.73 sqM) Glucose 97 (74-99) mg/dL Plasma Lactic Acid Giovani (0.7-2.0) mmol/L Calcium 10.0 (8.4-10.2) mg/dL Magnesium 2.0 (1.6-2.3) mg/dL Total Bilirubin 1.0 (0.2-1.3) mg/dL AST 308 H (17-59) U/L ALT 370 H (4-49) U/L Alkaline Phosphatase 1015 H (38-126) U/L Troponin I (0.000-0.034) ng/mL Total Protein 8.2 (6.3-8.2) g/dL Albumin 4.7 (3.5-5.0) g/dL Lipase 155 (23-300) U/L 08/08/24 08/08/24 Range/Units 13:32 13:32 WBC (4.50-10.00) 10*3/uL RBC (4.40-5.60) 10*6/uL Hgb (13.0-17.0) g/dL Hct (39.6-50.0) % MCV (80.0-97.0) fL MCH (27.0-32.0) pg MCHC (32.0-37.0) g/dL Plt Count (140-440) 10*3/uL MPV (9.5-12.2) fL Immature Gran % (Auto) % Neutrophils % % Lymphocytes % % Monocytes % % Eosinophils % % Basophils % % Immature Gran # (0.00-0.04) 10*3/uL Neutrophils # (1.80-7.70) 10*3/uL Lymphocytes # (0.90-5.00) 10*3/uL Monocytes # (0.20-1.00) 10*3/uL Eosinophils # (0.04-0.35) 10*3/uL Basophils # (0.00-0.10) 10*3/uL PT (10.0-12.5) sec INR (<1.2) APTT (22.0-30.0) sec Sodium (137-145) mmol/L Potassium (3.5-5.1) mmol/L Chloride (98-107) mmol/L Carbon Dioxide (22-30) mmol/L Anion Gap mmol/L BUN (9-20) mg/dL Creatinine (0.66-1.25) mg/dL Est GFR (CKD-EPI)AfAm (>60 ml/min/1.73 sqM) Est GFR (CKD-EPI)NonAf (>60 ml/min/1.73 sqM) Glucose (74-99) mg/dL Plasma Lactic Acid Giovani 1.0 (0.7-2.0) mmol/L Calcium (8.4-10.2) mg/dL Magnesium (1.6-2.3) mg/dL Total Bilirubin (0.2-1.3) mg/dL AST (17-59) U/L ALT (4-49) U/L Alkaline Phosphatase (38-126) U/L Troponin I <0.012 (0.000-0.034) ng/mL Total Protein (6.3-8.2) g/dL Albumin (3.5-5.0) g/dL Lipase (23-300) U/L - EKG Data -: EKG Interpreted by Me EKG Comments: 12-lead Electrocardiogram Interpretation Note EKG was reviewed and interpreted by myself. 12-lead ECG performed at 1256 is interpreted by me as revealing normal sinus rhythm with right bundle branch block at a rate of 65 beats per minute. [place] is rightward deviated. NV interval is 188 milliseconds, QRS duration is 186 ms, QTc is 450 ms.. There were no acute ST or T wave abnormalities to suggest myocardial ischemia or injury. R wave progression across the precordium was satisfactory. By my interpretation this EKG is non-diagnostic for acute ischemia. Compared with EKG from March 2023 which shows the chronic nonspecific T wave and ST segment abnormalities are present then as well. Unchanged from March 2023. Critical Care Time Critical Care Time: Yes Total Critical Care Time: 34 Disposition Clinical Impression: Common bile duct obstruction Disposition: OTHER INSTITUTION NOT DEFINED Condition: Stable Referrals: Avni Merritt MD [Primary Care Provider] - 1-2 days Time of Disposition: 17:30 - Out of Hospital Transfer - Req. Specs Out of Hospital Transfer - Requested Specifics: Other Emergency Center (Transferred to [facility] for evaluation by gastroenterology and for ERCP. We do not have ERCP or gastroenterology available at our facility.)
[2024-08-08] MEDS: SODIUM CHLORIDE 0.9% 1,000 ML IV ONE (13:41)
[2024-08-08] MEDS: PANTOPRAZOLE 40 MG/10 ML VIAL IVP STA (13:42)
[2024-08-08] MEDS: ONDANSETRON 4 MG/2 ML VIAL IVP STA (13:42)
[2024-08-08 13:49] LABS: Basophils # (A) 0.01 10*3/uL (0.00-0.10); Basophils % (A) 0.3 %; Eosinophils % (A) 2.9 %; HCT 42.4 % (39.6-50.0); HGB 14.1 g/dL (13.0-17.0); Lymphocytes # (A) 0.92 10*3/uL (0.90-5.00); Lymphocytes % (A) 27.1 %; MCH 30.3 pg (27.0-32.0); MCHC 33.3 g/dL (32.0-37.0); Mean Platelet Volume 8.6 fL (9.5-12.2); Monocytes # (A) 0.45 10*3/uL (0.20-1.00); Monocytes % (A) 13.2 %; Neutrophils # (A) 1.91 10*3/uL (1.80-7.70); Neutrophils % (A) 56.2 %; Platelet Count 330 10*3/uL (140-440); RBC 4.66 10*6/uL (4.40-5.60); RDW 13.5 % (11.5-14.5)
[2024-08-08 13:58] LABS: Partial Thromboplastin Time 26.8 sec (22.0-30.0); Prothrombin Time 11.4 sec (10.0-12.5)
[2024-08-08 14:01] LABS: ALT 370 U/L (4-49); AST 308 U/L (17-59); African American GFR (CKD) >90 (>60 ml/min/1.73 sqM); Albumin 4.7 g/dL (3.5-5.0); Alkaline Phosphatase 1015 U/L (38-126); Anion Gap 10 mmol/L; Blood Urea Nitrogen 6 mg/dL (9-20); Carbon Dioxide 28 mmol/L (22-30); Chloride 101 mmol/L (98-107); Glucose 97 mg/dL (74-99); Lipase 155 U/L (23-300); Non-African American GFR(CKD) >90 (>60 ml/min/1.73 sqM); Potassium 4.7 mmol/L (3.5-5.1); Sodium 139 mmol/L (137-145); Total Protein 8.2 g/dL (6.3-8.2)
--- NOTE | 2024-08-08 14:16 | XR ---
EXAMINATION TYPE: XR chest 2V DATE OF EXAM: 08/08/2024 CLINICAL INDICATION: Male, 69 years old with history of Chest Pain, TECHNIQUE: Frontal and lateral views of the chest are obtained. COMPARISON: Chest x-ray March 23, 2023 FINDINGS: There is no focal air space opacity, pleural effusion, or pneumothorax seen. The cardiac silhouette size is upper limits of normal. The osseous structures are intact. IMPRESSION: No acute pulmonary process. [facility], , 08/08/2024 2:13 PM
--- NOTE | 2024-08-08 15:27 | CT ---
EXAMINATION TYPE: CT chest angio for PE CT DLP: 1062.9 mGycm, Automated exposure control for dose reduction was used. DATE OF EXAM: 08/08/2024 3:21 PM COMPARISON: Chest radiograph 08/08/2024 CLINICAL INDICATION:Male, 69 years old with history of atypical chest pain; TECHNIQUE/CONTRAST: CTA scan of the thorax is performed with IV Contrast, patient injected with 100 mL of Isovue 370, pul monary embolism protocol. MIP images are created and reviewed. FINDINGS: Pulmonary Artery: There is no evidence for a filling defect within the pulmonary vasculature to sugge st acute pulmonary embolism. The pulmonary artery is of normal size. Lungs/Pleura: No evidence of focal consolidation, pleural effusion or pneumothorax. No suspicious pul monary nodules or masses. Airway: Large airways are patent. Heart: Size within normal limits.No pericardial effusion. Mild coronary artery calcifications present . Vasculature: No evidence of aortic aneurysm. Mediastinum: No gross evidence of adenopathy. Musculoskeletal: Mild degenerative disc disease changes are present throughout the thoracolumbar spin e. No acute osseous abnormality. Soft Tissues: Unremarkable. Lower neck: No significant findings. Upper Abdomen: Please refer to dedicated CT abdomen and pelvis of the same day for findings. IMPRESSION: No evidence of pulmonary embolism or acute thoracic process. [facility], , 08/08/2024 3:25 PM
--- NOTE | 2024-08-08 15:37 | CT ---
EXAMINATION TYPE: CT abdomen pelvis w con CT DLP: 1062.9 mGycm, Automated exposure control for dose reduction was used. DATE OF EXAM: 08/08/2024 3:21 PM COMPARISON: CT abdomen pelvis 03/05/2016 CLINICAL INDICATION:Male, 69 years old with history of epigastric, periumbilical abd pain; TECHNIQUE: Standard CT of the abdomen and pelvis following the administration of 100 cc of Isovue 3 00 IV contrast material. Coronal and sagittal reformats were performed. FINDINGS: LOWER CHEST: Please see dedicated CTA chest for findings ABDOMEN LIVER: Unremarkable GALLBLADDER AND BILE DUCTS: Gallbladder is surgically absent with mild intrahepatic and extra hepatic biliary dilatation. This abrupt focal tapering of the common bile duct at the pancreatic head (serie s 502, image 31. The common bile duct measures up to 9 mm. There is some wall thickening of the intra hepatic and extra hepatic biliary ducts. PANCREAS: Unremarkable. SPLEEN: Unremarkable. ADRENAL GLANDS: Unremarkable. KIDNEYS AND URETERS: No evidence of hydronephrosis or renal calculus. The kidneys enhance symmetrical ly. Contrast is demonstrated within both collecting systems and proximal ureters on the delayed phase . PELVIS BLADDER: Underdistended but grossly unremarkable. REPRODUCTIVE: Enhancing enlarged prostate gland measuring up to 5.7 cm in transverse dimension. ABDOMEN & PELVIS STOMACH AND BOWEL: Stomach and duodenum are unremarkable. The appendix is within normal limits. No fo main bowel wall thickening. Distal colonic diverticulosis without evidence for acute diverticulitis. N o evidence of bowel obstruction. PERITONEUM/RETROPERITONEUM: No evidence of pneumoperitoneum or free fluid. Stranding changes identifi ed within the left retroperitoneum. VASCULATURE: No evidence of aortic aneurysm. MUSCULOSKELETAL: No acute osseous abnormalities. Moderate multilevel degenerative disc disease. Grade 1 retrolisthesis of L5 on S1 with bilateral pars defects. LYMPH NODES: Multiple enlarged retroperitoneal lymph nodes identified with examples including a left periaortic 2.6 cm lymph node (series 501, image 23). A left periaortic lymph node measuring up to 2.2 cm (series 501, image 30). Gastrohepatic enlarged lymph node measuring up to 1.8 cm (series 501, nicole ge 16). Gastrohepatic enlarged lymph node measuring up to 2.6 cm (series 501:15). SOFT TISSUE/ABDOMINAL WALL: Unremarkable IMPRESSION: 1. Postcholecystectomy changes with dilated intra and extra hepatic biliary ducts with focal abrupt t ransition of the common bile duct at the pancreatic head. Additionally there is some wall thickening of the intra and extra hepatic bile ducts. Correlation with biliary labs is recommended. Could be see n with choledocholithiasis versus an infectious/inflammatory process versus malignancy. Consider furt her evaluation with MRCP/ERCP 2. Multiple enlarged gastrohepatic and periaortic lymph nodes concerning for malignancy/metastasis. F urther workup is recommended. 3. Heterogenous enhancing enlarged prostate gland. Correlate with PSA values. 4. Colonic diverticulosis without evidence for acute diverticulitis. [facility], , 08/08/2024 3:35 PM
[2024-08-08 17:47] VITALS: BP 124/89; PULSE 72
== END 2024-08-08 19:45 | disposition other institution (70) ==
LOC: EC 12:37
DX: K83.1 Obstruction of bile duct (principal); I45.10 Unspecified right bundle-branch block; F17.200 Nicotine dependence, unspecified, uncomplicated
CPT/HCPCS: 36415; 93005; 80053; 83605; 83690; 83735; 84484; 85025; 85610; 85730; 71046; 71275; 74177; 99291; 96374; 96375; 96361; J2405; Q9967; J2470

== ENCOUNTER 2024-09-27 12:20 | Observation (INO) | payer MEDICARE ==
--- NOTE | 2024-09-27 12:57 | ED ---
General Adult HPI - General Chief complaint: Shortness of Breath Stated complaint: SOB, Cancer Time Seen by Provider: 09/27/24 12:46 Source: patient, RN notes reviewed Mode of arrival: ambulatory Limitations: no limitations - History of Present Illness Initial comments: Patient is a 69-year-old male present to the emergency department with concerns with difficulty in breathing. Symptoms have been present for just the past 2 days. Symptoms are mostly exertional however has mild dyspnea at rest. Patient is able to walk around 30 feet. Patient also has mild chest discomfort with exertion. Patient is concerned he may be a little bit dehydrated as well. Patient does have history of gastric cancer with last chemotherapy 1 week ago. - Related Data Home Medications Medication Instructions Recorded Confirmed Omeprazole 20 mg PO DAILY 08/08/24 08/08/24 Allergies Allergy/AdvReac Type Severity Reaction Status Date / Time No Known Allergies Allergy Verified 08/08/24 17:05 Review of Systems ROS Statement: Those systems with pertinent positive or pertinent negative responses have been documented in the HPI. ROS Other: All systems not noted in ROS Statement are negative. Constitutional: Denies: fever Eyes: Denies: eye pain Respiratory: Reports: as per HPI, dyspnea Cardiovascular: Reports: as per HPI Past Medical History Past Medical History: Cancer, GERD/Reflux Additional Past Medical History / Comment(s): hx of diverticulosis, Bilateral shoulder pain-torn rotator cuffs, cervical pain, stomach ca History of Any Multi-Drug Resistant Organisms: None Reported Past Surgical History: Cholecystectomy Additional Past Surgical History / Comment(s): EGD, colonoscopy, benign cysts removed from forehead, cyst on buttock Past Anesthesia/Blood Transfusion Reactions: No Reported Reaction Additional Past Anesthesia/Blood Transfusion Reaction / Comment(s): no blood transfusion Past Psychological History: No Psychological Hx Reported Smoking Status: Current some day smoker Past Alcohol Use History: None Reported Past Drug Use History: Marijuana - Past Family History Mother Family Medical History: Dementia Father Family Medical History: Coronary Artery Disease (CAD) Additional Family Medical History / Comment(s): Father had CABG at the age of 82 yrs. Sister(s) Family Medical History: Cancer Additional Family Medical History / Comment(s): lungs and lymph nodes Daughter(s) Family Medical History: Cancer Additional Family Medical History / Comment(s): thyroid cancer Brother(s) Family Medical History: Coronary Artery Disease (CAD) General Exam Limitations: no limitations General appearance: alert, in no apparent distress Head exam: Present: normocephalic Eye exam: Present: normal appearance Neck exam: Present: normal inspection Respiratory exam: Present: normal lung sounds bilaterally. Absent: respiratory distress Cardiovascular Exam: Present: regular rate, normal rhythm GI/Abdominal exam: Present: soft. Absent: tenderness Extremities exam: Present: normal inspection. Absent: pedal edema, calf tenderness Neurological exam: Present: alert Psychiatric exam: Present: normal affect, normal mood Skin exam: Present: normal color Course Vital Signs 09/27/24 09/27/24 12:22 13:19 Temperature 98 F Pulse Rate 90 Respiratory 20 20 Rate Blood Pressure 89/69 O2 Sat by Pulse 98 Oximetry EKG Findings - EKG Results: EKG: interpreted by MILLA (Right bundle branch block. Nonspecific T waves. Right axis.), sinus rhythm Medical Decision Making - Medical Decision Making Was pt. sent in by a medical professional or institution (, PA, TALENT DEVELOPMENT SPECIALIST, urgent care, hospital, or longterm...) When possible be specific @ -No Did you speak to anyone other than the patient for history (EMS, parent, family, police, friend...)? What history was obtained from this source @ -No Did you review nursing and triage notes (agree or disagree)? Why? @ -I reviewed and agree with nursing and triage notes Were old charts reviewed (outside hosp., previous admission, EMS record, old EKG, old radiological studies, urgent care reports/EKG's, longterm records)? Report findings @ -No old charts were reviewed Differential Diagnosis (chest pain, altered mental status, abdominal pain women, abdominal pain men, vaginal bleeding, weakness, fever, dyspnea, syncope, headache, dizziness, GI bleed, back pain, seizure, CVA, palpatations, mental health, musculoskeletal)? @ -Differential Dyspnea: Coronary syndrome, arrhythmia, tamponade, asthma, COPD, pulmonary embolism, pneumonia, pneumothorax, pulmonary effusion, anaphylaxis, diabetic ketoacidosis, flailed chest, pulmonary contusion, diaphragmatic rupture, anemia, neuromuscular, this is not meant to be an all-inclusive list. EKG interpreted by me (3pts min.). @ -As above X-rays interpreted by me (1pt min.). @ -Chest x-ray shows no acute process. CT interpreted by me (1pt min.). @ -CT scan of the chest ordered and is pending U/S interpreted by me (1pt. min.). @ -None done What testing was considered but not performed or refused? (CT, X-rays, U/S, labs)? Why? @ -CT scan of the chest ordered and pending What meds were considered but not given or refused? Why? @ -None Did you discuss the management of the patient with other professionals (professionals i.e. DrMisti, PA, TALENT DEVELOPMENT SPECIALIST, lab, RT, psych nurse, social organization professor, bung remover, teacher, military source operations officer, patient case manager)? Give summary @ -Case was discussed with Dr. Johansen will admit covering Dr. Merritt. He is aware of pending further evaluation with D-dimer Was smoking cessation discussed for >3mins.? @ -No Was critical care preformed (if so, how long)? @ -No Were there social determinants of health that impacted care today? How? (Homelessness, low income, unemployed, alcoholism, drug addiction, transportation, low edu. Level, literacy, decrease access to med. care, long term, rehab)? @ -No Was there de-escalation of care discussed even if they declined (Discuss DNR or withdrawal of care, Hospice)? DNR status @ -No What co-morbidities impacted this encounter? (DM, HTN, Smoking, COPD, CAD, Cancer, CVA, ARF, Chemo, Hep., AIDS, mental health diagnosis, sleep apnea, morbid obesity)? @ -Gastric cancer Was patient admitted / discharged? Hospital course, mention meds given and route, prescriptions, significant lab abnormalities, going to OR and other pertinent info. @ -Patient presents with recent exertional dyspnea with some chest discomfort. Patient will be admitted. Patient reevaluated. Patient and family updated. Admission orders written. Undiagnosed new problem with uncertain prognosis? @ -No Drug Therapy requiring intensive monitoring for toxicity (Heparin, Nitro, Insulin, Cardizem)? @ -No Were any procedures done? @ -No Diagnosis/symptom? @ -Exertional dyspnea Acute, or Chronic, or Acute on Chronic? @ -Acute Uncomplicated (without systemic symptoms) or Complicated (systemic symptoms)? @ -Default Side effects of treatment? @ -No Exacerbation, Progression, or Severe Exacerbation? @ -No Poses a threat to life or bodily function? How? (Chest pain, [place], [place], pneumonia, PE, COPD, DKA, ARF, appy, cholecystitis, CVA, Diverticulitis, Homicidal, Suicidal, threat to staff... and all critical care pts) @ -No - Lab Data Result diagrams: 09/27/24 13:32 09/27/24 13:32 Lab Results 09/27/24 09/27/24 09/27/24 Range/Units 13:32 13:32 13:32 WBC 5.64 (4.50-10.00) 10*3/uL RBC 4.87 (4.40-5.60) 10*6/uL Hgb 14.5 (13.0-17.0) g/dL Hct 41.8 (39.6-50.0) % MCV 85.8 D (80.0-97.0) fL MCH 29.8 (27.0-32.0) pg MCHC 34.7 (32.0-37.0) g/dL Plt Count 294 (140-440) 10*3/uL MPV 7.9 L (9.5-12.2) fL Immature Gran % (Auto) 1.6 % Neutrophils % 62.8 % Lymphocytes % 19.7 % Monocytes % 7.6 % Eosinophils % 7.8 % Basophils % 0.5 % Immature Gran # 0.09 H (0.00-0.04) 10*3/uL Neutrophils # 3.54 (1.80-7.70) 10*3/uL Lymphocytes # 1.11 (0.90-5.00) 10*3/uL Monocytes # 0.43 (0.20-1.00) 10*3/uL Eosinophils # 0.44 H (0.04-0.35) 10*3/uL Basophils # 0.03 (0.00-0.10) 10*3/uL PT 12.1 (10.0-12.5) sec INR 1.1 (<1.2) APTT 22.7 (22.0-30.0) sec D-Dimer 1.59 H (<0.60) mg/L FEU Sodium 131 L (137-145) mmol/L Potassium 4.3 (3.5-5.1) mmol/L Chloride 98 (98-107) mmol/L Carbon Dioxide 27 (22-30) mmol/L Anion Gap 6 mmol/L BUN 19 (9-20) mg/dL Creatinine 0.59 L (0.66-1.25) mg/dL Est GFR (CKD-EPI)AfAm >90 (>60 ml/min/1.73 sqM) Est GFR (CKD-EPI)NonAf >90 (>60 ml/min/1.73 sqM) Glucose 106 H (74-99) mg/dL Calcium 9.2 (8.4-10.2) mg/dL Magnesium 1.9 (1.6-2.3) mg/dL Total Bilirubin 0.4 (0.2-1.3) mg/dL AST 40 (17-59) U/L ALT 74 H (4-49) U/L Alkaline Phosphatase 159 H (38-126) U/L Troponin I (0.000-0.034) ng/mL NT-Pro-B Natriuret Pep 22 pg/mL Total Protein 5.5 L (6.3-8.2) g/dL Albumin 3.2 L (3.5-5.0) g/dL /11/14 Range/Units 13:32 WBC (4.50-10.00) 10*3/uL RBC (4.40-5.60) 10*6/uL Hgb (13.0-17.0) g/dL Hct (39.6-50.0) % MCV (80.0-97.0) fL MCH (27.0-32.0) pg MCHC (32.0-37.0) g/dL Plt Count (140-440) 10*3/uL MPV (9.5-12.2) fL Immature Gran % (Auto) % Neutrophils % % Lymphocytes % % Monocytes % % Eosinophils % % Basophils % % Immature Gran # (0.00-0.04) 10*3/uL Neutrophils # (1.80-7.70) 10*3/uL Lymphocytes # (0.90-5.00) 10*3/uL Monocytes # (0.20-1.00) 10*3/uL Eosinophils # (0.04-0.35) 10*3/uL Basophils # (0.00-0.10) 10*3/uL PT (10.0-12.5) sec INR (<1.2) APTT (22.0-30.0) sec D-Dimer (<0.60) mg/L FEU Sodium (137-145) mmol/L Potassium (3.5-5.1) mmol/L Chloride (98-107) mmol/L Carbon Dioxide (22-30) mmol/L Anion Gap mmol/L BUN (9-20) mg/dL Creatinine (0.66-1.25) mg/dL Est GFR (CKD-EPI)AfAm (>60 ml/min/1.73 sqM) Est GFR (CKD-EPI)NonAf (>60 ml/min/1.73 sqM) Glucose (74-99) mg/dL Calcium (8.4-10.2) mg/dL Magnesium (1.6-2.3) mg/dL Total Bilirubin (0.2-1.3) mg/dL AST (17-59) U/L ALT (4-49) U/L Alkaline Phosphatase (38-126) U/L Troponin I <0.012 (0.000-0.034) ng/mL NT-Pro-B Natriuret Pep pg/mL Total Protein (6.3-8.2) g/dL Albumin (3.5-5.0) g/dL Disposition Clinical Impression: Exertional dyspnea Disposition: ADMITTED IP TO THIS HOSP Is patient prescribed a controlled substance at d/c from ED?: No Referrals: Avni Merritt MD [Primary Care Provider] - 1-2 days Time of Disposition: 15:07
[2024-09-27 13:39] LABS: Basophils # (A) 0.03 10*3/uL (0.00-0.10); Basophils % (A) 0.5 %; Eosinophils # (A) 0.44 10*3/uL (0.04-0.35); Eosinophils % (A) 7.8 %; HCT 41.8 % (39.6-50.0); HGB 14.5 g/dL (13.0-17.0); Lymphocytes # (A) 1.11 10*3/uL (0.90-5.00); Lymphocytes % (A) 19.7 %; MCH 29.8 pg (27.0-32.0); MCHC 34.7 g/dL (32.0-37.0); Monocytes # (A) 0.43 10*3/uL (0.20-1.00); Monocytes % (A) 7.6 %; Neutrophils # (A) 3.54 10*3/uL (1.80-7.70); Neutrophils % (A) 62.8 %; Platelet Count 294 10*3/uL (140-440); RBC 4.87 10*6/uL (4.40-5.60); RDW 13.0 % (11.5-14.5); WBC 5.64 10*3/uL (4.50-10.00)
[2024-09-27] MEDS: HYDROmorphone 1 MG/ML 1 ML SYRINGE IVP STA (13:39)
[2024-09-27] MEDS: SODIUM CHLORIDE 0.9% 1,000 ML IV SCH (13:39)
[2024-09-27 13:50] LABS: ALT 74 U/L (4-49); AST 40 U/L (17-59); African American GFR (CKD) >90 (>60 ml/min/1.73 sqM); Albumin 3.2 g/dL (3.5-5.0); Alkaline Phosphatase 159 U/L (38-126); Anion Gap 6 mmol/L; Blood Urea Nitrogen 19 mg/dL (9-20); Calcium 9.2 mg/dL (8.4-10.2); Carbon Dioxide 27 mmol/L (22-30); Chloride 98 mmol/L (98-107); Glucose 106 mg/dL (74-99); Magnesium 1.9 mg/dL (1.6-2.3); Non-African American GFR(CKD) >90 (>60 ml/min/1.73 sqM); Potassium 4.3 mmol/L (3.5-5.1); Sodium 131 mmol/L (137-145); Total Protein 5.5 g/dL (6.3-8.2)
[2024-09-27 13:53] LABS: INR 1.1 (<1.2); Partial Thromboplastin Time 22.7 sec (22.0-30.0); Prothrombin Time 12.1 sec (10.0-12.5)
[2024-09-27 13:58] LABS: NT-Pro-B-Type Natriuretic Pept 22 pg/mL
[2024-09-27 14:10] LABS: MCV 85.8 fL (80.0-97.0)
--- NOTE | 2024-09-27 14:10 | XR ---
EXAMINATION TYPE: XR chest 2V DATE OF EXAM: 09/27/2024 2:06 PM COMPARISON: Chest radiographs from 08/08/2024. CLINICAL INDICATION: Male, 69 years old with history of difficulty breathing; [facility] TECHNIQUE: XR chest 2V Frontal and lateral views of the chest. FINDINGS: Lungs/Pleura: There is no evidence of pleural effusion, focal consolidation, or pneumothorax. Pulmonary vascularity: Unremarkable. Heart/mediastinum: Cardiomediastinal silhouette is unremarkable. Musculoskeletal: No acute osseous pathology. Right chest wall [id number] tip at the superior vena cava. IMPRESSION: No acute cardiopulmonary disease/process. [facility], , 09/27/2024 2:08 PM
[2024-09-27] MEDS ORDERED: NALOXONE 0.4 MG/ML 1 ML VIAL IV PRN (15:07)
[2024-09-27] MEDS ORDERED: ONDANSETRON 4 MG/2 ML VIAL IVP PRN (15:07)
[2024-09-27] MEDS ORDERED: HYDROmorphone 1 MG/ML 1 ML SYRINGE IVP PRN (15:07)
--- NOTE | 2024-09-27 15:12 | US ---
EXAMINATION TYPE: US venous doppler duplex LE BI DATE OF EXAM: 09/27/2024 3:00 PM COMPARISON: NONE CLINICAL INDICATION: Male, 69 years old with history of pain; Bilat calf pain x 2 days, pt states he feels like he ran a mile, no hx of dvt, no thinners, Pain TECHNIQUE: The lower extremity deep venous system is examined utilizing real time linear array sonog deyanira with graded compression, color doppler sonography, and spectral doppler. SIDE PERFORMED: Bilateral FINDINGS: VESSELS IMAGED: Common Femoral Vein Deep Femoral Vein Greater Saphenous Vein * Femoral Vein Popliteal Vein Small Saphenous Vein * Proximal Calf Veins (* superficial vessels) Right Leg: appears negative for DVT, Color Doppler imaging shows patency of the vessels. Spectral wa veforms are within normal limits. Left Leg: appears negative for DVT, Color Doppler imaging shows patency of the vessels. Spectral wav eforms are within normal limits. IMPRESSION: No ultrasound evidence for deep venous thrombosis. [facility], , 09/27/2024 3:09 PM
--- NOTE | 2024-09-27 15:31 | CT ---
EXAMINATION TYPE: CT angio chest DATE OF EXAM: 09/27/2024 COMPARISON: 08/08/2024 CLINICAL INDICATION: Male, 69 years old with history of keith; PHH, SOB, chest tightness, chemo 7 days ago for stage four stomach cancer TECHNIQUE: CTA scan of the thorax is performed with IV Contrast, patient injected with 100ml mL of Isovue 370, p ulmonary embolism protocol. MIP images are created and reviewed. CT DLP: 288.[address] CTDI: mGy Automated exposure control for dose reduction was used. FINDINGS: There are 2 stable 4 -5 mm right middle lobe pulmonary nodules. There is no new or suspicious lung ma ss or nodule. There is no airspace consolidation or abnormal interstitial density. There is no pleural effusion or pneumothorax. Great vessels chest are normal in caliber. There are no filling defects to suggest pulmonary embolism . Limited scanning through the upper abdomen reveals cholecystectomy. There is a biliary stent. There a re no focal osseous lesions. IMPRESSION: 1. No evidence of pulmonary medicine. 2. 2 stable sub-6 mm right middle lobe pulmonary nodules. 3. No acute cardiopulmonary disease. [facility], , 09/27/2024 3:28 PM
[2024-09-27] MEDS: PANTOPRAZOLE 40 MG/10 ML VIAL IV SCH (16:30)
[2024-09-27] MEDS: HYDROmorphone 0.5 MG/0.5 ML SYRINGE IVP PRN (17:27)
--- NOTE | 2024-09-27 21:13 | P.HPIM ---
History of Present Illness H&P Date: 09/27/24 Chief Complaint: Short of breath Very pleasant 69-year-old patient of Dr. Beau Merritt. Accompanied in the ER by his and sister. Patient was diagnosed with gastric cancer at [facility] in July of this year. Has received 2 rounds of chemotherapy. Pending a PET scan this weekend. Patient also has a stent in the bile duct. Patient presented with shortness of breath of 1 day. Denies previously. No cough no fever no chills no wheezing. Also complained of some discomfort in the calf. Has decreased appetite and losing weight some pain in the joints Review of systems: GEN.: None EYES: None HEENT: None NECK: None RESPIRATORY: As above e CARDIOVASCULAR: None GASTROINTESTINAL: None GENITOURINARY: None MUSCULOSKELETAL: Joint pains LYMPHATICS: None HEMATOLOGICAL: None PSYCHIATRY: None NEUROLOGICAL: None Social history: Stop smoking few months ago. Retired from [employer]. 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 Lives with his . Physical examination: VITAL SIGNS: 98, 77, 17, 121 x 95, 100% room air GENERAL: BMI 22.7, lying bed awake slightly anxious. EYES: Pupils equal. Conjunctiva lucinda l. HEENT: External appearance of nose and ears normal, oral cavity grossly normal. NECK: JVD not raised; masses not palpable. HEART: First and second heart sounds are normal; no edema. LUNGS: Respiratory rate normal; some decreased breath sounds. ABDOMEN: Soft, nontender, liver spleen not palpable, no masses palpable. PSYCH: Alert and oriented x3; mood and affect lucinda l. MUSCULOSKELETAL:No Clubbing/cyanosis;muscles-grossly intact NEUROLOGICAL: Cranial nerves grossly intact; no facial asymmetry, power and sensation grossly intact. LYMPHATICS: No lymph nodes palpable in the axilla and neck INVESTIGATIONS, reviewed in the clinical context: September 27, 2024 white count 5.6 hemoglobin 14.5 platelets 294 sodium 131 potassium 4.3 BUN 19 creatinine 0.59 Troponin I less than 0.012 x 3 proBNP 22 EKG tracing personally reviewed by me-right bundle olimpia block. Sinus rhythm Chest x-ray film personally reviewed by me-unremarkable Doppler ultrasound lower extremity bilateral: Negative for DVT CT angio chest: Negative for PE. Stable 6 mm right middle lobe pulmonary nodule. Assessment plan: - Acute COPD exacerbation in a patient previous smoker. Up to few months ago. PE was ruled out. DuoNeb 4 times daily. Nebulized Pulmicort - Gastric cancer diagnosed in July 2024 at [facility]. Patient had 2 round of chemotherapy. Pending PET scan this weekend. - Patient has a stent in this bile duct In the ER care was discussed with the patient and sister. I did not have the results available with me at that time of the CT scan. Past Medical History Past Medical History: Cancer, GERD/Reflux Additional Past Medical History / Comment(s): hx of diverticulosis, Bilateral shoulder pain-torn rotator cuffs, cervical pain, stomach ca History of Any Multi-Drug Resistant Organisms: None Reported Past Surgical History: Cholecystectomy Additional Past Surgical History / Comment(s): EGD, colonoscopy, benign cysts removed from forehead, cyst on buttock Past Anesthesia/Blood Transfusion Reactions: No Reported Reaction Additional Past Anesthesia/Blood Transfusion Reaction / Comment(s): no blood transfusion Past Psychological History: No Psychological Hx Reported Smoking Status: Current some day smoker Past Alcohol Use History: None Reported Past Drug Use History: Marijuana - Past Family History Mother Family Medical History: Dementia Father Family Medical History: Coronary Artery Disease (CAD) Additional Family Medical History / Comment(s): Father had CABG at the age of 82 yrs. Sister(s) Family Medical History: Cancer Additional Family Medical History / Comment(s): lungs and lymph nodes Daughter(s) Family Medical History: Cancer Additional Family Medical History / Comment(s): thyroid cancer Brother(s) Family Medical History: Coronary Artery Disease (CAD) Medications and Allergies Home Medications Medication Instructions Recorded Confirmed Type Ferrous Sulfate [Feosol] 325 mg PO DAILY 09/27/24 09/27/24 History HYDROmorphone [Dilaudid] 2 mg PO Q4H PRN 09/27/24 09/27/24 History Ondansetron Odt [Zofran Odt] 8 mg PO Q8H PRN 09/27/24 09/27/24 History Allergies Allergy/AdvReac Type Severity Reaction Status Date / Time No Known Allergies Allergy Verified 08/08/24 17:05 Physical Exam Vitals: Vital Signs Temp Pulse Resp BP Pulse Ox 09/27/24 19:38 77 17 121/95 100 09/27/24 14:25 68 18 88/75 98 09/27/24 13:19 20 09/27/24 12:22 98 F 90 20 89/69 98 Intake and Output 09/27/24 09/27/24 09/27/24 06:59 14:59 22:59 Other: Weight 65.771 kg Results CBC & Chem 7: 09/27/24 13:32 09/27/24 13:32 Labs: Abnormal Lab Results - Last 24 Hours (Table) 09/27/24 09/27/24 09/27/24 Range/Units 13:32 13:32 13:32 MPV 7.9 L (9.5-12.2) fL Immature Gran # 0.09 H (0.00-0.04) 10*3/uL Eosinophils # 0.44 H (0.04-0.35) 10*3/uL D-Dimer 1.59 H (<0.60) mg/L FEU Sodium 131 L (137-145) mmol/L Creatinine 0.59 L (0.66-1.25) mg/dL Glucose 106 H (74-99) mg/dL Plasma Lactic Acid Giovani (0.7-2.0) mmol/L ALT 74 H (4-49) U/L Alkaline Phosphatase 159 H (38-126) U/L Total Protein 5.5 L (6.3-8.2) g/dL Albumin 3.2 L (3.5-5.0) g/dL 09/27/24 Range/Units 16:30 MPV (9.5-12.2) fL Immature Gran # (0.00-0.04) 10*3/uL Eosinophils # (0.04-0.35) 10*3/uL D-Dimer (<0.60) mg/L FEU Sodium (137-145) mmol/L Creatinine (0.66-1.25) mg/dL Glucose (74-99) mg/dL Plasma Lactic Acid Giovani 0.6 L (0.7-2.0) mmol/L ALT (4-49) U/L Alkaline Phosphatase (38-126) U/L Total Protein (6.3-8.2) g/dL Albumin (3.5-5.0) g/dL
[2024-09-28 07:47] VITALS: BP 123/79; PULSE 67; RESP 14; TEMP 97.4
[2024-09-28 08:03] LABS: HCT 38.6 % (39.6-50.0); HGB 12.4 g/dL (13.0-17.0); MCH 28.6 pg (27.0-32.0); MCHC 32.1 g/dL (32.0-37.0); MCV 89.1 FL (80.0-97.0); NRBC Per 100 WBC 0.02 X 10*3/uL (0.00-0.01); Platelet Count 283 X 10*3/uL (140-440); RBC 4.33 X 10*6/uL (4.40-5.60); RDW 13.3 % (11.5-14.5); WBC 5.49 X 10*3/uL (4.50-10.00)
[2024-09-28 08:04] LABS: Basophils # (A) 0.04 X 10*3/uL (0.00-0.10); Basophils % (A) 0.7 %; Eosinophils # (A) 0.57 X 10*3/uL (0.04-0.35); Eosinophils % (A) 10.4 %; Immature Grans, Automated 1.50 %; Lymphocytes # (A) 1.14 X 10*3/uL (0.90-5.00); Lymphocytes % (A) 20.8 %; Monocytes # (A) 0.44 X 10*3/uL (0.20-1.00); Monocytes % (A) 8.0 %; Neutrophils # (A) 3.22 X 10*3/uL (1.80-7.70); Neutrophils % (A) 58.6 %
[2024-09-28 08:18] LABS: ALT 60 U/L (10-49); AST 32 U/L (14-35); Albumin 2.8 g/dL (3.8-4.9); Albumin/Globulin Ratio 1.87 Ratio (1.60-3.17); Alkaline Phosphatase 129 U/L (41-126); Anion Gap 6.10 mmol/L (4.00-12.00); BUN/Creat Ratio 28.67 Ratio (12.00-20.00); Blood Urea Nitrogen 17.2 mg/dL (9.0-27.0); Calcium 8.2 mg/dL (8.7-10.3); Carbon Dioxide 23.9 mmol/L (21.6-31.8); Chloride 104 mmol/L (96-109); Globulin 1.5 g/dL (1.6-3.3); Glucose 103 mg/dL (70-110); Magnesium 1.8 mg/dL (1.5-2.4); Potassium 4.4 mmol/L (3.5-5.5); Sodium 134 mmol/L (135-145); Total Protein 4.3 g/dL (6.2-8.2)
--- NOTE | 2024-09-28 10:45 | P.CRDCN ---
History of Present Illness Consult date: 09/28/24 Reason for Consult (text): Dyspnea on exertion History of present illness: This is a 69-year-old male patient was previously seen by Dr. Wiggins in 2018 for atypical chest pain. He has a past medical history of stomach cancer recently diagnosed in July of this year and started chemotherapy, completed second round of chemotherapy 2 weeks ago and his neck scheduled treatment is 10/04. Patient states that 2 days ago he was outside walking to his daughter's home which is about less than 100 yards and he developed significant shortness of breath with activity. He states he does not usually have this type of shortness of breath. He also experienced it on his way home. He yesterday, he was walking out to his car and he had dyspnea on exertion. He called his PCP and was told to come into the hospital for further evaluation. Patient denies chest pain and has no chest pain during any of the episodes. Blood pressure 123/79, heart rate 67, pulse ox 99% on room air. Patient denies history of smoking. 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 -EKG: Sinus rhythm with right bundle branch block. -Chest x-ray: No acute process. -Venous duplex of the bilateral lower extremities negative for DVT -CTA chest: No pulmonary embolism. 2 sub-6 mm right middle lobe pulmonary nodules. No active cardiopulmonary disease. -Laboratory studies: WBC 5.4, hemoglobin 12.4, sodium 134, potassium 4.4, creatinine 0.6. Troponin negative x 3. ALT 60, alkaline phosphatase 129. -Home cardiac medications: None. -Echocardiogram performed in 2018 revealed EF of 55 to 60%. -Stress echocardiogram performed in 2018 was negative for stress-induced ischemia. Review Of Systems: At the time of my exam: CONSTITUTIONAL: Denies fever or chills. HEENT: Denies blurred vision, vision changes, or eye pain. Denies hemoptysis CARDIOVASCULAR: Denies chest pain. Denies orthopnea. Denies PND. Denies palpitations RESPIRATORY: Denies shortness of breath. GASTROINTESTINAL: Denies abdominal pain. Denies nausea or vomiting. HEMATOLOGIC: Denies bleeding disorders. GENITOURINARY: Denies any blood in urine. SKIN: Denies puritis. Denies rash. Physical examination: Gen: This is 69-year-old male in no acute distress. VS: reviewed HEENT: Head is atraumatic, normocephalic. Pupils equal, round. Sclerae is anicteric. NECK: Supple. No JVD. LUNGS: Clear to auscultation. No wheezes or rhonchi. No intercostal retractions. HEART: Regular rate and rhythm. No murmur. ABDOMEN: Soft No tenderness. EXTREMITIES: No pedal edema. No calf tenderness. NEUROLOGICAL: Patient is awake, alert and oriented x3. Assessment: Dyspnea on exertion of unclear etiology Stomach cancer on chemotherapy Plan: Resume patient's home cardiac medications Obtain 2-D echocardiogram and Doppler study to assess cardiac structure and function to rule out medication induced cardiomyopathy If echocardiogram is unremarkable, patient is cleared for discharge Thank you kindly for this consultation. Nurse practitioner note has been reviewed, I agree with documented findings and plan of care. Patient was seen and examined. Past Medical History Past Medical History: Cancer, GERD/Reflux Additional Past Medical History / Comment(s): hx of diverticulosis, Bilateral shoulder pain-torn rotator cuffs, cervical pain, stomach cancer on chemo History of Any Multi-Drug Resistant Organisms: None Reported Past Surgical History: Cholecystectomy Additional Past Surgical History / Comment(s): EGD, colonoscopy, benign cysts removed from forehead, cyst on buttock Past Anesthesia/Blood Transfusion Reactions: No Reported Reaction Additional Past Anesthesia/Blood Transfusion Reaction / Comment(s): no blood transfusion Past Psychological History: No Psychological Hx Reported Additional Psychological History / Comment(s): . Smoking Status: Current some day smoker Past Alcohol Use History: None Reported Additional Past Alcohol Use History / Comment(s): 1-3 cigarette a day. Past Drug Use History: Marijuana Additional Drug Use History / Comment(s): gummies at night knows to not do 24 hours prior to procedure - Past Family History Mother Family Medical History: Dementia Father Family Medical History: Coronary Artery Disease (CAD) Additional Family Medical History / Comment(s): Father had CABG at the age of 82 yrs. Sister(s) Family Medical History: Cancer Additional Family Medical History / Comment(s): lungs and lymph nodes Daughter(s) Family Medical History: Cancer Additional Family Medical History / Comment(s): thyroid cancer Brother(s) Family Medical History: Coronary Artery Disease (CAD) Medications and Allergies Home Medications Medication Instructions Recorded Confirmed Type Ferrous Sulfate [Iron (65 MG 325 mg PO DAILY 09/27/24 09/27/24 History Elemental)] HYDROmorphone [Dilaudid] 2 mg PO Q4H PRN 09/27/24 09/27/24 History Ondansetron Odt [Zofran ODT] 8 mg PO Q8H PRN 09/27/24 09/27/24 History Albuterol Sulfate [Albuterol 1 puff PO Q4-6H #8.5 gm 09/28/24 Rx Sulfate Hfa] Allergies Allergy/AdvReac Type Severity Reaction Status Date / Time No Known Allergies Allergy Verified 08/08/24 17:05 Physical Exam Vitals: Vital Signs Temp Pulse Pulse Resp BP BP Pulse Ox 09/28/24 07:13 97.4 F L 67 14 123/79 99 09/28/24 02:00 97.9 F 65 16 118/83 100 09/27/24 23:54 16 09/27/24 22:20 97.7 F 70 18 118/80 99 09/27/24 21:20 98.1 F 76 19 100/79 98 09/27/24 19:38 77 17 121/95 100 09/27/24 14:25 68 18 88/75 98 09/27/24 13:19 20 09/27/24 12:22 98 F 90 20 89/69 98 Intake and Output 09/27/24 09/28/24 09/28/24 22:59 06:59 14:59 Other: Voiding Method Toilet # Voids 0 2 Weight 65.771 kg Results 09/28/24 04:49 09/28/24 04:49 Cardiac Enzymes 09/27/24 09/27/24 09/27/24 Range/Units 13:32 13:32 16:29 AST 40 (17-59) U/L Troponin I <0.012 <0.012 (0.000-0.034) ng/mL 09/27/24 Range/Units 19:31 AST (17-59) U/L Troponin I <0.012 (0.000-0.034) ng/mL Coagulation 09/27/24 Range/Units 13:32 PT 12.1 (10.0-12.5) sec APTT 22.7 (22.0-30.0) sec CBC 09/27/24 Range/Units 13:32 WBC 5.64 (4.50-10.00) 10*3/uL RBC 4.87 (4.40-5.60) 10*6/uL Hgb 14.5 (13.0-17.0) g/dL Hct 41.8 (39.6-50.0) % Plt Count 294 (140-440) 10*3/uL Comprehensive Metabolic Panel 09/27/24 Range/Units 13:32 Sodium 131 L (137-145) mmol/L Potassium 4.3 (3.5-5.1) mmol/L Chloride 98 (98-107) mmol/L Carbon Dioxide 27 (22-30) mmol/L BUN 19 (9-20) mg/dL Creatinine 0.59 L (0.66-1.25) mg/dL Glucose 106 H (74-99) mg/dL Calcium 9.2 (8.4-10.2) mg/dL AST 40 (17-59) U/L ALT 74 H (4-49) U/L Alkaline Phosphatase 159 H (38-126) U/L Total Protein 5.5 L (6.3-8.2) g/dL Albumin 3.2 L (3.5-5.0) g/dL Current Medications Generic Name Dose Route Start Last Admin Trade Name Freq PRN Reason Stop Dose Admin Hydromorphone HCl 1 mg 09/27/24 15:07 Hydromorphone 1 Mg/Ml 1 Ml Syringe IVP Q3HR PRN Severe Pain (Scale 7 to 10) Hydromorphone HCl 0.5 mg 09/27/24 15:07 09/28/24 02:56 Hydromorphone 0.5 Mg/0.5 Ml Syringe IVP 0.5 mg Q3HR PRN Administration Moderate Pain (Scale 4 to 6) Sodium Chloride 1,000 mls @ 130 mls/hr 09/27/24 13:00 09/28/24 02:56 Saline 0.9% IV 130 mls/hr .[id number] GAVIN Administration Naloxone HCl 0.2 mg 09/27/24 15:07 Naloxone 0.4 Mg/Ml 1 Ml Vial IV Q2M PRN Opioid Reversal Ondansetron HCl 4 mg 09/27/24 15:07 Ondansetron 4 Mg/2 Ml Vial IVP Q8HR PRN Nausea And Vomiting Pantoprazole Sodium 40 mg 09/27/24 15:15 09/27/24 16:30 Pantoprazole 40 Mg/10 Ml Vial IV 40 mg DAILY GAVIN Administration Intake and Output 09/27/24 09/28/24 09/28/24 22:59 06:59 14:59 Other: Voiding Method Toilet # Voids 0 2 Weight 65.771 kg 09/27/24 13:32 09/27/24 13:32
--- NOTE | 2024-09-28 11:39 | CA ---
Transthoracic Echo Report Name: Christian Aviles Age: 69 Gender: M : 1955 Exam Date: 09/28/2024 08:35 Exam Location: [place] [facility] Ht (in): 67 Wt (lb): 145 Ordering Physician: Ronel Ng Attending/Referring Phys: [id number], [employer]ist Fabi Rey RDCS Procedure CPT: Indications: PERLA, on chemo Cardiac Hx: Technical Quality: Good Contrast 1: Total Dose (mL): Contrast 2: Total Dose (mL): MEASUREMENTS (Male / Female) Normal Values 2D ECHO LV Diastolic Diameter PLAX 4.3 cm 4.2 - 5.9 / 3.9 - 5.3 cm LV Systolic Diameter PLAX 2.8 cm IVS Diastolic Thickness 1.1 cm 0.6 - 1.0 / 0.6 - 0.9 cm LVPW Diastolic Thickness 1.1 cm 0.6 - 1.0 / 0.6 - 0.9 cm LV Relative Wall Thickness 0.5 RV Internal Dim ED PLAX 3.0 cm LVOT Diameter 2.0 cm LA Systolic Diameter LX 2.3 cm 3.0 - 4.0 / 2.7 - 3.8 cm LV Diastolic Volume MOD 4C 100.0 cm??? LV Systolic Volume MOD 4C 41.6 cm??? LV Ejection Fraction MOD 4C 58.4 % LV Cardiac Index MOD 4C 2116.3 cm???/min???m??? LV Diastolic Length 4C 8.0 cm LV Systolic Length 4C 6.4 cm LA Volume 44.9 cm??? 18 - 58 / 22 - 52 cm??? LA Volume Index 25.4 cm???/m??? 16 - 28 cm???/m??? DOPPLER AI Peak Velocity 379.2 cm/s AI Peak Gradient 57.5 mmHg AI Pressure Half Time 767.0 ms MV Area PHT 2.9 cm??? Mitral E Point Velocity 48.6 cm/s Mitral A Point Velocity 55.1 cm/s Mitral E to A Ratio 0.9 MV Deceleration Time 260.1 ms TR Peak Velocity 209.4 cm/s TR Peak Gradient 17.5 mmHg FINDINGS Left Ventricle Left ventricular ejection fraction is estimated at 55-60 %. Mild concentric left ventricular hypertrophy. No obvious regional wall motion abnormalities. Left ventricular cavity size normal. Normal average global longitudinal strain of the left ventricle with a value of - 20 %. Right Ventricle Right ventricular dilatation. Right ventricular systolic pressure within normal limits. Right Atrium Normal right atrial size. Left Atrium Normal left atrial size. Mitral Valve Mitral valve thickened. No mitral stenosis. Trace mitral regurgitation. Aortic Valve Can't rule Bicuspid aortic valve. No aortic stenosis. Mild aortic regurgitation. Tricuspid Valve Structurally normal tricuspid valve. No tricuspid stenosis. Mild tricuspid regurgitation. Pulmonic Valve Structurally normal pulmonic valve. No pulmonic stenosis. Trace pulmonic regurgitation. Pericardium No pericardial effusion. Aorta Aortic annulus normal. CONCLUSIONS Reason: Exertional shortness of breath Preserved LV size and function, ejection fraction greater than 55% Mild RV enlargement No pericardial effusion No masses Previewed by: Dr. Huy Cheney MD (Electronically Signed) Final Date: 28 September 2024 11:38
--- NOTE | 2024-09-28 16:29 | P.DS ---
Providers Date of admission: 09/27/24 15:08 Expected date of discharge: 09/28/24 Attending physician: Bautista Johansen Consults: 09/27/24 15:07 Consult Physician Routine Consulting Provider: Zoraida Cooper Consult Reason/Comments: Gastric cancer Do you want consulting provider notified?: Yes Consult Physician Urgent Consulting Provider: Ector Duong Consult Reason/Comments: Exertional dyspnea Do you want consulting provider notified?: Yes Primary care physician: Avni Merritt [facility] Course: Chief Complaint: Short of breath Very pleasant 69-year-old patient of Dr. Beau Merritt. Accompanied in the ER by his and sister. Patient was diagnosed with gastric cancer at [facility] in July of this year. Has received 2 rounds of chemotherapy. Pending a PET scan this weekend. Patient also has a stent in the bile duct. Patient presented with shortness of breath of 1 day. Denies previously. No cough no fever no chills no wheezing. Also complained of some discomfort in the calf. Has decreased appetite and losing weight some pain in the joints she is able to September 27: CT scan negative for PE. Doing well. Spoke to the . Some flareup of COPD given he is a longstanding smoker patient otherwise has been doing well. Discharged on albuterol as needed Social history: Stop smoking few months ago. Retired from [employer]. 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 Lives with his . Physical examination: VITAL SIGNS: 4, 67, 14, 123 x 79, 99% GENERAL: BMI 22.7, lying bed awake slightly anxious. EYES: Pupils equal. Conjunctiva lucinda l. HEENT: External appearance of nose and ears normal, oral cavity grossly normal. NECK: JVD not raised; masses not palpable. HEART: First and second heart sounds are normal; no edema. LUNGS: Respiratory rate normal; some decreased breath sounds. ABDOMEN: Soft, nontender, liver spleen not palpable, no masses palpable. PSYCH: Alert and oriented x3; mood and affect lucinda l. MUSCULOSKELETAL:No Clubbing/cyanosis;muscles-grossly intact INVESTIGATIONS, reviewed in the clinical context: September 28 white count 5.4 hemoglobin 12.4 platelets 23 potassium 4.4 creatinine 0 point AST 60 ALT 129 September 27, 2024 white count 5.6 hemoglobin 14.5 platelets 294 sodium 131 potassium 4.3 BUN 19 creatinine 0.59 Troponin I less than 0.012 x 3 proBNP 22 EKG tracing personally reviewed by me-right bundle olimpia block. Sinus rhythm Chest x-ray film personally reviewed by me-unremarkable Doppler ultrasound lower extremity bilateral: Negative for DVT CT angio chest: Negative for PE. Stable 6 mm right middle lobe pulmonary nodule. Assessment plan: - Acute COPD exacerbation in a patient previous smoker. Up to few months ago. PE was ruled out.: Resolved DuoNeb 4 times daily. Nebulized Pulmicort DC with albuterol as needed - Gastric cancer diagnosed in July 2024 at [facility]. Patient had 2 round of chemotherapy. Pending PET scan this weekend. - Patient has a stent in this bile duct Disposition: Home Past Medical History Past Medical History: Cancer, GERD/Reflux Additional Past Medical History / Comment(s): hx of diverticulosis, Bilateral shoulder pain-torn rotator cuffs, cervical pain, stomach ca History of Any Multi-Drug Resistant Organisms: None Reported Past Surgical History: Cholecystectomy Additional Past Surgical History / Comment(s): EGD, colonoscopy, benign cysts removed from forehead, cyst on buttock Past Anesthesia/Blood Transfusion Reactions: No Reported Reaction Additional Past Anesthesia/Blood Transfusion Reaction / Comment(s): no blood transfusion Past Psychological History: No Psychological Hx Reported Smoking Status: Current some day smoker Past Alcohol Use History: None Reported Past Drug Use History: Marijuana Plan - Discharge Summary Discharge Rx Participant: No New Discharge Prescriptions: New Albuterol Sulfate [Albuterol Sulfate Hfa] 1 puff PO Q4-6H #8.5 gm Continue HYDROmorphone [Dilaudid] 2 mg PO Q4H PRN PRN Reason: Pain Ondansetron Odt [Zofran ODT] 8 mg PO Q8H PRN PRN Reason: Nausea And Vomiting Ferrous Sulfate [Iron (65 MG Elemental)] 325 mg PO DAILY Discharge Medication List Ferrous Sulfate [Iron (65 MG Elemental)] 325 mg PO DAILY 09/27/24 [History] HYDROmorphone [Dilaudid] 2 mg PO Q4H PRN 09/27/24 [History] Ondansetron Odt [Zofran ODT] 8 mg PO Q8H PRN 09/27/24 [History] Albuterol Sulfate [Albuterol Sulfate Hfa] 1 puff PO Q4-6H #8.5 gm 09/28/24 [Rx] Follow up Appointment(s)/Referral(s): Avni Merritt MD [Primary Care Provider] - 1-2 days Discharge Disposition: HOME SELF-CARE
--- NOTE | 2024-09-28 18:01 | P.CONS ---
History of Present Illness - Reason for Consult Consult date: 09/28/24 - History of Present Illness Patient is a 69-year-old male consulted due to his history of gastric adenocarcinoma. He was admitted here for shortness of breath. Patient was diagnosed with gastric adenocarcinoma at [facility] in July of this year and routinely follows up there. He has received 2 rounds of FOLFOX chemotherapy at [facility]. Next round is next week. Records from [facility] reviewed. Patient had difficulty with nausea/vomiting after the second round of chemo. He typically will take Zofran for his nausea and says it will resolve his symptoms. [facility] non-bloody diarrhea a couple days a go but has not had any episodes since. Patient says appetite has gone down. Jacob schneider was wondering if it is shortness of breath had anything to do with the chemotherapy he has been receiving. He is a former light smoker that would have 1 to 2 cigarettes a day. He quit 1 month ago. Chest CTA ruled out any sign of PE. Venous Doppler study ruled out any signs of DVT. Pertinent positives and negatives as discussed above, a complete review of systems was performed and all other systems are negative. Past Medical History Past Medical History: Cancer, GERD/Reflux Additional Past Medical History / Comment(s): hx of diverticulosis, Bilateral shoulder pain-torn rotator cuffs, cervical pain, stomach cancer on chemo History of Any Multi-Drug Resistant Organisms: None Reported Past Surgical History: Cholecystectomy Additional Past Surgical History / Comment(s): EGD, colonoscopy, benign cysts removed from forehead, cyst on buttock Past Anesthesia/Blood Transfusion Reactions: No Reported Reaction Additional Past Anesthesia/Blood Transfusion Reaction / Comm: no blood transfusion Past Psychological History: No Psychological Hx Reported Additional Psychological History / Comment(s): . Smoking Status: Current some day smoker Past Alcohol Use History: None Reported Additional Past Alcohol Use History / Comment(s): 1-3 cigarette a day. Past Drug Use History: Marijuana Additional Drug Use History / Comment(s): gummies at night knows to not do 24 hours prior to procedure - Past Family History Mother Family Medical History: Dementia Father Family Medical History: Coronary Artery Disease (CAD) Additional Family Medical History / Comment(s): Father had CABG at the age of 82 yrs. Sister(s) Family Medical History: Cancer Additional Family Medical History / Comment(s): lungs and lymph nodes Daughter(s) Family Medical History: Cancer Additional Family Medical History / Comment(s): thyroid cancer Brother(s) Family Medical History: Coronary Artery Disease (CAD) Medications and Allergies Home Medications Medication Instructions Recorded Confirmed Type Ferrous Sulfate [Iron (65 MG 325 mg PO DAILY 09/27/24 09/27/24 History Elemental)] HYDROmorphone [Dilaudid] 2 mg PO Q4H PRN 09/27/24 09/27/24 History Ondansetron Odt [Zofran ODT] 8 mg PO Q8H PRN 09/27/24 09/27/24 History Albuterol Sulfate [Albuterol 1 puff PO Q4-6H #8.5 gm 09/28/24 Rx Sulfate Hfa] Allergies Allergy/AdvReac Type Severity Reaction Status Date / Time No Known Allergies Allergy Verified 08/08/24 17:05 Physical Exam Vitals: Vital Signs Temp Pulse Pulse Resp BP BP Pulse Ox 09/28/24 07:13 97.4 F L 67 14 123/79 99 09/28/24 02:00 97.9 F 65 16 118/83 100 09/27/24 23:54 16 09/27/24 22:20 97.7 F 70 18 118/80 99 09/27/24 21:20 98.1 F 76 19 100/79 98 09/27/24 19:38 77 17 121/95 100 09/27/24 14:25 68 18 88/75 98 09/27/24 13:19 20 09/27/24 12:22 98 F 90 20 89/69 98 Intake and Output 09/27/24 09/28/24 09/28/24 22:59 06:59 14:59 Other: Voiding Method Toilet # Voids 0 2 Weight 65.771 kg Gen: In NAD, non-toxic HEENT: normocephalic, atraumatic, hearing acuity is intact, mucous membranes dry CVS: perfusing all extremities well, no pitting edema Respiratory: symmetric chest expansion, no accessory muscle use, GI: soft, NTTP, palpable liver MSK/Derm: no rashes, cyanosis Neuro: CN II-XII intact Psych: cooperative, euthymic mood, judgment and insight is intact Results CBC & Chem 7: 09/28/24 04:49 09/28/24 04:49 Labs: Abnormal Lab Results - Last 24 Hours (Table) 09/27/24 09/27/24 09/27/24 Range/Units 13:32 13:32 13:32 RBC (4.40-5.60) X 10*6/uL Hgb (13.0-17.0) g/dL Hct (39.6-50.0) % MPV 7.9 L (9.5-12.2) fL Immature Gran # 0.09 H (0.00-0.04) 10*3/uL Eosinophils # 0.44 H (0.04-0.35) 10*3/uL NRBC/100 WBC Diff (0.00-0.01) X 10*3/uL D-Dimer 1.59 H (<0.60) mg/L FEU Sodium 131 L (137-145) mmol/L Creatinine 0.59 L (0.66-1.25) mg/dL BUN/Creatinine Ratio (12.00-20.00) Ratio Glucose 106 H (74-99) mg/dL Plasma Lactic Acid Giovani (0.7-2.0) mmol/L Calcium (8.7-10.3) mg/dL Total Bilirubin (0.3-1.2) mg/dL ALT 74 H (4-49) U/L Alkaline Phosphatase 159 H (38-126) U/L Total Protein 5.5 L (6.3-8.2) g/dL Albumin 3.2 L (3.5-5.0) g/dL Globulin (1.6-3.3) g/dL 09/27/24 09/28/24 09/28/24 Range/Units 16:30 04:49 04:49 RBC 4.33 L (4.40-5.60) X 10*6/uL Hgb 12.4 L (13.0-17.0) g/dL Hct 38.6 L (39.6-50.0) % MPV 8.4 L (9.5-12.2) fL Immature Gran # 0.08 H (0.00-0.04) 10*3/uL Eosinophils # 0.57 H (0.04-0.35) 10*3/uL NRBC/100 WBC Diff 0.02 H (0.00-0.01) X 10*3/uL D-Dimer (<0.60) mg/L FEU Sodium 134 L (137-145) mmol/L Creatinine (0.66-1.25) mg/dL BUN/Creatinine Ratio 28.67 H (12.00-20.00) Ratio Glucose (74-99) mg/dL Plasma Lactic Acid Giovani 0.6 L (0.7-2.0) mmol/L Calcium 8.2 L (8.7-10.3) mg/dL Total Bilirubin 0.2 L (0.3-1.2) mg/dL ALT 60 H (4-49) U/L Alkaline Phosphatase 129 H (38-126) U/L Total Protein 4.3 L (6.3-8.2) g/dL Albumin 2.8 L (3.5-5.0) g/dL Globulin 1.5 L (1.6-3.3) g/dL Assessment and Plan Assessment: #. Gastric adenocarcinoma #. Shortness of breath #. Anemia Was placed on DuoNeb by primary team Records from [facility] were reviewed. It is a very low probability that his shortness of breath is attributed to the chemotherapy regimen he is currently on. Chest CTA ruled out any sign of PE. Venous Doppler study ruled out any signs of DVT. Echocardiogram showing preserved LV size and function and EF of 55%. Chest x-ray showing no acute cardiopulmonary disease or process. He routinely follows up with [facility] For his infusions. Does not admit t o any nausea vomiting or diarrhea. Will manage symptomatically shall symptoms arise. Patient is optimized from a hematological/oncology standpoint. Thank you for this consultation. We will continue to follow throughout duration of admission. Please do not hesitate to ask any further questions.
== END 2024-09-28 11:55 | disposition home or self-care (01) ==
LOC: EC 12:20 → 6NMEDSUR 15:08
PROVIDERS: ADMIT Hospitalist; ATTEND Hospitalist
DX: J44.1 Chronic obstructive pulmonary disease with (acute) exacerbation (principal); C16.9 Malignant neoplasm of stomach, unspecified; I45.10 Unspecified right bundle-branch block; K21.9 Gastro-esophageal reflux disease without esophagitis; K57.90 Diverticulosis of intestine, part unspecified, without perforation or abscess without bleeding; F17.210 Nicotine dependence, cigarettes, uncomplicated; Z92.21 Personal history of antineoplastic chemotherapy; Z79.899 Other long term (current) drug therapy; Z96.89 Presence of other specified functional implants; Z82.49 Family history of ischemic heart disease and other diseases of the circulatory system
CPT/HCPCS: 96376 ×3; 96361; 96374; 96375; 99285; 36415; 93005; 93306; 85379; 83880; 80053 ×2; 83605; 83735 ×2; 84484; 85025 ×2; 85610; 85730; 71046; 93970; 71275; G0378 ×2; J1171 ×3; Q9967; J2470 ×2